=== PATIENT | female | born 1950 | race African-American/Black ===

== ENCOUNTER 2016-10-27 19:08 | Emergency (ER) | payer BC, OTHER ==
[~2016-10-27] VITALS: Ht 170.2 cm; Wt 85.7 kg
[~2016-10-27 19:08] MED LIST: ACTICIN 5% CREA60 G1 TOP; ALLEGRA180 MG PO; AVALIDE 300-251 EACH PO; BENADRYL25 MG PO; BUTALB-APAP-CA1 EACH PO; BUTALBITAL-APA1 EAC1 PO; CAMBIA50 MG PO; CARDIZEM CD120 MG PO; CATAPRES0.1 MG PO; CLONIDINE0.1 PO; DOXYCYCLINE 10100 MG PO; DUONEB 2.5-0.5 M3 ML INH; ESTRACE0.5 MG PO; FIORICET 50-321 EACH PO; FIORINAL 50-321 EACH PO; FLEXERIL PO; GLUCOPHAGE1000 MG PO; HYDROCHLOROTHIA25 M1 PO; IBUPROFEN 800800 M1 PO; KLOR-CON 1010 MEQ PO; LEVEMIR SUBQ; LOSARTAN POTAS100 MG PO; MEDROLDOSEPACK PO; METFORMIN HCL500 MG PO; MICRONASE5 MG PO; MUCINEX DM TABL1 TA1 PO; NORCO 5-325 TA1 EACH PO; NORFLEX100 MG PO; NORVASC10 MG PO; NORVASC5 MG PO; PHENERGAN 25 MG25 M1 PO; POTASSIUM20 PO; PREDNISONE 10 M10 MG; PREDNISONE 10 M10 MG PO; PREDNISONE 20 M20 MG PO; PREDNISONE50 MG PO; PREMARIN PO; PROMETHAZINE/C118 ML PO; SINGULAIR 10 MG10 M1 PO; SYMBICORT160 MCG/4. INH; TESSALON PERLE100 MG PO; ULTRAVATE50 GM TP; VAGIFEM25 MCG PO; XOPENEX 0.63 MG/3 M1 INH; ZOFRAN ODT4 MG PO; [UNRECOGNIZED DRUG - REMARK]
[2016-10-27] MEDS ORDERED: FLONASE 0.05%50 MCG NASAL (19:42)
== END 2016-10-27 19:56 | disposition home or self-care (01) ==
LOC: ER 19:08
DX: H11.31 Conjunctival hemorrhage, right eye (principal); J30.9 Allergic rhinitis, unspecified; E11.9 Type 2 diabetes mellitus without complications; I10 Essential (primary) hypertension; J45.909 Unspecified asthma, uncomplicated; G43.909 Migraine, unspecified, not intractable, without status migrainosus; Z90.710 Acquired absence of both cervix and uterus

== ENCOUNTER 2016-11-11 17:28 | Emergency (ER) | payer BC, OTHER ==
[~2016-11-11] VITALS: Ht 170.2 cm; Wt 86.6 kg
[~2016-11-11 17:28] MED LIST changes: +FLONASE 0.05%50 MCG NASAL
[2016-11-11] MEDS ORDERED: PREDNISONE 20 M20 MG PO (18:01)
[2016-11-11] MEDS ORDERED: PEPCID20 MG PO (18:01)
[2016-11-11] MEDS ORDERED: DIPHENHIST50 MG PO (18:03)
== END 2016-11-11 18:26 | disposition home or self-care (01) ==
LOC: ER 17:28
DX: T78.49XA Other allergy, initial encounter (principal); X58.XXXA Exposure to other specified factors, initial encounter; E11.9 Type 2 diabetes mellitus without complications; I10 Essential (primary) hypertension; J45.909 Unspecified asthma, uncomplicated; Z90.710 Acquired absence of both cervix and uterus

== ENCOUNTER → 2017-02-19 | Outpatient (CLI) | payer BC, OTHER ==
[~2017-02-19] MED LIST changes: +DIPHENHIST50 MG PO; +PEPCID20 MG PO
== END ==
LOC: RAD 07:18
DX: Z12.31 Encounter for screening mammogram for malignant neoplasm of breast (principal)

== ENCOUNTER 2017-08-25 15:26 | Emergency (ER) | payer BC, OTHER ==
[~2017-08-25] VITALS: Ht 170.2 cm; Wt 79.8 kg
[2017-08-25] MEDS ORDERED: JANUMET 50-1,01 EACH PO (15:33)
[2017-08-25] MEDS ORDERED: TRIAMCINOLONE A15 G3 TOP (16:20)
== END 2017-08-25 16:55 | disposition home or self-care (01) ==
LOC: ER 15:26
DX: L30.9 Dermatitis, unspecified (principal); L40.9 Psoriasis, unspecified; I10 Essential (primary) hypertension; E11.9 Type 2 diabetes mellitus without complications; J45.909 Unspecified asthma, uncomplicated

== ENCOUNTER → 2017-10-13 | Outpatient (CLI) | payer BC, OTHER ==
[~2017-10-13] MED LIST changes: +JANUMET 50-1,01 EACH PO; +TRIAMCINOLONE A15 G3 TOP
== END ==
LOC: RAD 15:21
DX: J45.51 Severe persistent asthma with (acute) exacerbation (principal); J20.9 Acute bronchitis, unspecified

== ENCOUNTER → 2017-10-26 | Outpatient (CLI) | payer BC, OTHER ==
[~2017-10-26] VITALS: Ht 170.2 cm; Wt 81.6 kg
[~2017-10-26] MED LIST changes: +ASPIR 8181 MG PO; +CIPRO500 MG PO; +CLARITIN10 MG PO; +CLONIDINE HCL0.1 MG PO; +EPIPEN0.3 MG/0.1 IM; +GABAPENTIN 100100 MG PO; +HYDROCODONE-AP1 EAC6 PO; +PREDNISONE 5 MG5 M1 PO; +TRULICITY1.5 MG/0.5 SUBQ
--- NOTE | ~2017-10-26 | HPC ---
[facility] [address] [place] [address] PAIN MANAGEMENT CONSULTATION Name: YARA CALI [facility] [id number] Admission: 10/26/17 Attend Phys: Oswald Tyson DO Discharge: Date of : 48 Report #: [id number] THIS REPORT FOR: //name// CC: Oswald Tyson DATE OF SERVICE: 10/26/2017 CHIEF COMPLAINT: Low back pain, right lower extremity pain and paresthesias. HISTORY OF PRESENT ILLNESS: As you know, the patient is a very pleasant 67-year-old female who returns today in followup visit with recurrent low back pain, right lower extremity pain with paresthesias. The patient places pain today a level of 9/10, states her pain is sharp, numbness and tingling when describing pain, exacerbated with sitting, standing, and walking, improves with ibuprofen therapy and previous epidural injections. The patient was last seen in our clinic on 09/08/2016, undergoing an epidural injection under fluoroscopic guidance, which provided near 100% improvement in overall pain until just recently where she had a slow and progressive return of symptoms. She denies injury or trauma or any changes in medical history since our last visit. ALLERGIES: No known drug allergies. CURRENT MEDICATIONS: Gabapentin 100 mg 3 times a day, Janumet twice a day, montelukast sodium 10 mg per day, Symbicort 160/4.5 mcg 2 puffs twice a day, potassium chloride 10 mEq p.o. daily, diltiazem 120 mg 3 tabs p.o. daily, ipratropium, albuterol 3 puffs q.4 hours p.r.n., Fioricet 1 tab p.r.n., ibuprofen 600 mg 3 times a day, estradiol 0.5 mg once a day, hydrochlorothiazide 25 mg per day, and gabapentin 100 mg 3 times a day. SOCIAL HISTORY: The patient denies tobacco, alcohol, IV or illicit drug use. She is employed, working, not receiving workmen's compensation, unaccompanied today. IMAGING: No new imaging available. PHYSICAL EXAMINATION: VITAL SIGNS: Blood pressure 128/90, pulse 89, respiratory rate 14 and unlabored, the patient is 100% on room air, height 5 feet 7 inches tall, weight 180 pounds, and BMI calculated 28.2. GENERAL: Well-developed, well-nourished, well-hydrated 67-year-old female, appearing her stated age, placing current pain score at around 9/10. HEENT: Normocephalic, atraumatic. Pupils are equal, round, and reactive to light. Extraocular muscles are intact. Sclerae are nonicteric without injection. NEUROLOGIC: Cranial nerves 2-12 are grossly intact. Speech is fluent. [address] [address] PAIN MANAGEMENT CONSULTATION Name: YARA CALI Room #: REG [facility].#: [id number] Admission: 10/26/17 Attend Phys: Oswald Tyson DO Discharge: Date of : 48 Report #: [id number] EXTREMITIES: Show no clubbing, no cyanosis, and no edema. MUSCULOSKELETAL: Seated straight leg raising negative. Supine straight leg raising positive right. Louann's test negative. Modified Gaenslen's positive for axial low back pain. Ankle clonus negative. Babinski is negative. ASSESSMENT: 1. Symptomatic lumbar radiculopathy. 2. Displacement of lumbar intervertebral disk with radiculopathy. 3. Lumbosacral spondylosis with radiculopathy. 4. Left greater trochanteric bursitis. 5. Chronic intractable pain. PLAN: 1. The patient has returned today in followup visit requesting to undergo epidural injection under fluoroscopic guidance. Her last procedure performed in August 2016, was very effective at treating the patient's overall pain, noting 100% improvement in symptoms lasting until just recently. She returns today in followup visit with no new injury, no new trauma, requesting this injection to help with low back pain and right lower extremity pain for which she places pain score at 9/10. I have advised the patient of risks and benefits of the procedure, states understood and wished to proceed. 2. The patient does have what appears to be left greater trochanteric bursitis by physical exam. Palpation over the area causes intensification to pain. Location of symptoms correlates with greater trochanteric bursa on the left. I advised the patient treatment options including medication management, physical therapy, intra-bursal injections and surgery options, the patient wishes to consider her options before moving forward with treatment. She is hopeful that the steroid exposure from the epidural injection will provide benefit long-term for the greater trochanteric bursa, which typically occurs somewhere between 5-7 days after injections. We will monitor the effects of the epidural injection from a steroid exposure standpoint and its effects upon the greater trochanteric bursa. If no improvement is noted, she can return for intra-bursal injection. 3. No medication changes were made at today's visit, the patient to continue current medical therapy as previously prescribed. I will see the patient back in followup visit on an as needed basis for next in a series of epidural injections. DESCRIPTION OF PROCEDURE: Right L4-L5 paramedian epidural injection under fluoroscopic guidance. After obtaining written consent, the patient was taken back to fluoroscopy suite, placed in prone position with pillow under abdomen to decrease lumbar lordosis. Skin overlying lumbosacral area prepped and draped in aseptic fashion. The L4-L5 vertebral interspace identified by AP fluoroscopy. Skin and subcutaneous tissue overlying target site of injection was anesthetized with 3 mL of 1% lidocaine. [address] [address] PAIN MANAGEMENT CONSULTATION Name: YARA CALI Room #: REG [facility] Dias#: [id number] Admission: 10/26/17 Attend Phys: Oswald Tyson DO Discharge: Date of : 48 Report #: [id number] A 20-gauge 3-1/2-inch Tuohy needle advanced under fluoroscopic guidance towards the epidural space using a right paramedian approach. Epidural space identified using loss of resistance to air technique. After negative aspiration for heme or cerebrospinal fluid, 1 mL of Omnipaque was injected. Lumbar epidurogram was confirmed using both AP and lateral fluoroscopy. After negative aspiration for heme or cerebrospinal fluid, 5 mL of a solution containing 2 mL 40 mg per mL, 80 mg total triamcinolone, 3 mL lidocaine 1% was injected slowly. Needle retracted detention, flushed with 1 mL of 1% lidocaine and removed. Sterile bandage placed over injection site. No new motor deficits present in lower extremity following the procedure. The patient tolerated the procedure well, carefully escorted to the recovery room in stable condition. No apparent complications. After meeting discharge criteria, the patient discharged home. <ELECTRONICALLY SIGNED> By: Oswald Tyson DO 10/27/17 0739 [id number] [id number] Oswald Tyson DO /nt
[2017-10-26 08:04] VITALS: BP 128/90
== END | disposition home or self-care (01) ==
LOC: PAIN 07:02
DX: M51.16 Intervertebral disc disorders with radiculopathy, lumbar region (principal); M47.27 Other spondylosis with radiculopathy, lumbosacral region; M70.62 Trochanteric bursitis, left hip; G89.29 Other chronic pain; G43.909 Migraine, unspecified, not intractable, without status migrainosus; J45.909 Unspecified asthma, uncomplicated; Z79.899 Other long term (current) drug therapy

== ENCOUNTER 2017-11-20 23:40 | Inpatient (IN) | payer BC, OTHER ==
[~2017-11-20] VITALS: Ht 170.2 cm; Wt 82.2 kg
--- NOTE | ~2017-11-20 | 2DMMODE ---
[facility] [address] [place] [address] 2 D/M-MODE ECHOCARDIOGRAM Name: YARA CALI Room #: 217-P ADM IN .R.#: [id number] Admission: 11/21/17 Attend Phys: Joel Bennett MD Discharge: Date of : 48 Date of Service: 11/22/17 0959 Report #: [id number] THIS REPORT FOR: //name// APPROVED REPORT Study performed: 11/22/2017 08:42:51 EXAM: Comprehensive 2D, Doppler, and color-flow Echocardiogram Patient Location: Bedside Room #: [facility] Status: routine BSA: 1.80 HR: 88 bpm BP: 170/97 mmHg Other Information Study Quality: Adequate Indications CVA/TIA Diabetes Hypertension/HDD Echo Enhancing Agent Indication: Rule out Shunt Agent(s) / Amount(s) Used: Agitated Saline 7 cc 2D Dimensions LVEF(%): 71.58 (>50%) IVSd: 14.18 (7-11mm) LVOT Diam: 20.90 (18-24mm) LVDd: 35.04 mm PWd: 11.71 (7-11mm) Ascending Ao: 31.85 (22-36mm) LVDs: 21.05 (25-40mm) Aortic Root: 31.29 mm IVC: 19.00 mm Mckinney's LVEF: 71.58 % Volumes Left Atrial Volume (Systole) Single Plane 4CH: 39.58 mL Single Plane 2CH: 50.31 mL LA ESV Index: 29.00 mL/m2 Aortic Valve AoV Peak Roberto.: 1.73 m/s AO Peak Gr.: 11.99 mmHg LVOT Max P.40 mmHg LVOT Max V: 1.53 m/s [facility] [address] [address] 2 D/M-MODE ECHOCARDIOGRAM Name: VIRAJYARA [facility] .R.[facility] [id number] Admission: 11/21/17 Attend Phys: Joel Bennett MD Discharge: Date of : 48 Date of Service: 11/22/17 0959 Report #: [id number] ORQUIDEA Vmax: 3.04 cm2 Mitral Valve E/A Ratio: 0.6 MV Decel. Time: 259.78 ms MV E Max Roberto.: 1.00 m/s MV A Roberto.: 1.63 m/s MV PHT: 75.33 ms IVRT: 110.73 ms Pulmonary Valve PV Peak Roberto.: 1.00 m/s PV Peak Gr.: 4.00 mmHg Pulmonary Vein P Vein S: 0.54 m/s P Vein A: 0.31 m/s P Vein D: 0.31 m/s P Vein A Dur.: 100.3 msec P Vein S/D Ratio: 1.74 Left Ventricle The left ventricle is normal size. There is normal LV segmental wall motion. Mild concentric left ventricular hypertrophy. The left ventricular systolic function is normal. The left ventricular ejection fraction is within the normal range. LVEF is 60-65%. Grade I - abnormal relaxation pattern. Right Ventricle The right ventricle is normal size. The right ventricular systolic function is normal. Atria The left atrium size is normal. Interatrial septum is intact without evidence of ASD or PFO. The right atrium size is normal. Aortic Valve Aortic valve is calcified. No aortic regurgitation is present. There is no aortic valvular stenosis. Mitral Valve Moderate mitral annular calcification Trace mitral regurgitation. No evidence of mitral valve stenosis. Tricuspid Valve The tricuspid valve is normal in structure. There is no tricuspid valve regurgitation noted. Pulmonic Valve [address] [address] 2 D/M-MODE ECHOCARDIOGRAM Name: YARA CALI Room #: 217-P [facility] IN [facility]#: [id number] Admission: 11/21/17 Attend Phys: Joel Bennett MD Discharge: Date of : 48 Date of Service: 11/22/17 0959 Report #: [id number] The pulmonary valve is normal in structure. There is no pulmonic valvular regurgitation. Great Vessels The aortic root is normal in size. IVC is normal in size and collapses >50% with inspiration. Pericardium There is no pericardial effusion. <Conclusion> The left ventricular systolic function is normal. Mild concentric left ventricular hypertrophy. There is normal LV segmental wall motion. LVEF is 60-65%. Grade I diastolic dysfunction Aortic valve is calcified. No aortic regurgitation or stenosis Moderate mitral annular calcification. Trace mitral regurgitation. Pulmonary artery pressure could not be reliably ascertained There is no pericardial effusion. <ELECTRONICALLY SIGNED> By: Osvaldo Noel MD, FACC 11/22/17958 8 8 Osvaldo Noel MD, FACC /INF
--- NOTE | ~2017-11-20 | EEG ---
[facility] [place] [address] [place] [address] ELECTROENCEPHALOGRAM Name: YARA CALI Room #: 217-P [facility] IN M.R.#: [id number] Admission: 11/21/17 Attend Phys: Joel Bennett MD Discharge: 11/23/17 Date of : 48 Report #: [id number] THIS REPORT FOR: //name// CC: Joel BegumJessica Salinas Brian DATE OF SERVICE: 11/21/2017 This patient is evaluated for the possibility of seizure. EEG was done by placing the electrodes by standard 10-20 system of electrode placement. Both referential and sequential montages were used for recording. Background activity in this patient is about 11 Hz and 40 microvolts. This is a symmetrical activity. Photic stimulation is unremarkable. The patient went to sleep that is associated with bilaterally symmetrical sleep spindle and vertex sharp waves. Throughout the record, no active epileptiform activity was noticed. IMPRESSION: This patient's EEG is within normal limit. Thank you very much for this referral. <ELECTRONICALLY SIGNED> By: Stan Figueroa MD 12/01/172010 1220 1244 Stan Figueroa MD /nt
--- NOTE | ~2017-11-20 | EKG ---
[address] [address] ELECTROCARDIOGRAM REPORT Name: YARA CALI Room #: 217-P ADM IN M.R.#: [id number] Admission: 11/21/17 Attend Phys: Joel Bennett MD Discharge: Date of : 48 Report #: [id number] THIS REPORT FOR: //name// [facility] ED Test Date: 2017-11-21 Test Time: 00:01:45 Pat Name: YARA CALI Department: Room: [facility] Gender: F Facilities Locator: [facility] : 1950 Requested By: Adan Galo Order Number: [id number] MD: Osvaldo Noel Measurements Intervals [place] Rate: 121 P: 155 PA: 131 QRS: 77 QRSD: 81 T: QT: 325 QTc: 461 Interpretive Statements Sinus or ectopic atrial tachycardia Left atrial enlargement Low voltage, extremity leads Nonspecific T abnormalities, lateral leads Compared to ECG 05/17/2016 17:44:07 Ectopic atrial tachycardia is now present low voltage in the limb leads Electronically Signed On 11-21-2017 10:58:33 NETWORK PROJECT MANAGER by Osvaldo Noel [email or web address] <ELECTRONICALLY SIGNED> By: Osvaldo Noel MD, [facility] 11/21/17 1058 0001 0001 Osvaldo Noel MD, [facility] /EPI
--- NOTE | ~2017-11-20 | HC ---
[facility] [place] [place] [address] CONSULTATION Name: YARA CALI Room #: 217-P [facility] IN M.R.#: [id number] Admission: 11/21/17 Attend Phys: Joel Bennett MD Discharge: 11/23/17 Date of : 48 Report #: [id number] THIS REPORT FOR: //name// CC: Joel Torres DATE OF SERVICE: 11/21/2017 HISTORY OF PRESENT ILLNESS: This is a 67-year-old female patient who was admitted with recurrent episode of speech difficulty. History is somewhat poorly defined, but looks like she has garbled speech and at one time some facial droop was noticed on the right side. The patient has not had another episode since last night. She indicates she was under a lot of stress. The speech difficulty was severe, but resolved by itself. They also started spontaneously without any trauma. She estimated it lasted about 20 minutes. REVIEW OF SYSTEMS: Indicate that she is under a lot of stress. She is a longstanding hypertensive. She takes her medication. She also has a history of asthma. Her asthma became worse recently. She had to be started on prednisone. Whenever she had prednisone, she develops hypertension and she indicated that that is what probably had happened. Some time ago looks like she also had some headaches and hypokalemia that does not appear to be any problem at the moment. She feels she is back to her normal self now. I carried out her 14-point review of system both from the patient and from the record and this was her relevant 14-point review of system. She does have a history of hysterectomy. As mentioned above, she does have a history of hypertension. PAST MEDICAL HISTORY: Negative for any stroke. FAMILY HISTORY: Negative for early age stroke. SOCIAL HISTORY: She indicates she drinks on special occasion, but not on a regular basis. PHYSICAL EXAMINATION: The patient's examination indicate she is alert and she is responsive. Her speech, concentration, fund of knowledge and memory is at her baseline. She can tell me what month and what date it is. Cranial nerve examination 2-12 is unremarkable. Her strength, sensation, reflexes and tones are symmetrical. There is no cerebellar sign or papilledema. She is a reasonably well-developed individual who does not have any dysmorphic features of eyes, ears and face. Her vision and hearing looks adequate. She has no thyroid mass or carotid bruit. Her pulses are palpable. She has no edema, cyanosis or jaundice. Cardiac examination was mostly unremarkable. There is no atrial fibrillation or any murmur. Respiratory examination showed no rhonchi on either side and there was no respiratory difficulty. Blood pressure now is [facility] [address] [place] [address] CONSULTATION Name: YARA CALI Room #: [facility] IN M.R.#: [id number] Admission: 11/21/17 Attend Phys: Joel Bennett MD Discharge: 11/23/17 Date of : 48 Report #: [id number] 151/78, respiration is 18, pulse is 102 and temperature is 98.2. When she came in, her blood pressure was 203/127. LABORATORY DATA: She did have laboratory workup done. Her white count was normal and her potassium was 3.5 and GFR was 120. IMAGING: She had multiple imaging studies done looks like she had a CTA of the head that was mostly unremarkable. She had a carotid Doppler, which was unremarkable. Her echocardiogram is pending. She had an EEG, which was unremarkable. IMPRESSION: This patient's clinical symptoms are consistent with hypertensive urgency causing vasospasm and TIA-like symptoms. Sometime they can progress to full stroke and we will rule it out by doing an MRI and also rule out some other etiology. Her blood pressure is already being addressed by yourself. She has already received an aspirin. She received some Keppra and I do not think there is any need to continue Keppra. Her lipid profile is pending. Her C-reactive protein is pending and we will look at this workup to see if anything neurologically needs to be done, but I do not think we need to do much at the moment except for treating her blood pressure and avoiding any hyper or hypotension. RECOMMENDATIONS: 1. MRI. We will go ahead and get a stat to make sure there is no pathology, which need to be addressed because the patient is rather preserved. 2. I agree with antiplatelet therapy. 3. We will await lipid profile to see if she needs statin. 4. Some more blood workup including sed rate. 5. Main management is going to be the management of the vascular risk factors especially her hypertension. All of it was discussed with the patient and she understands that and she wants to follow this plan. Thank you very much for this referral. <ELECTRONICALLY SIGNED> By: Stan Figueroa MD 12/01/172008 1313 0128 Stan Figueroa MD /nt
[~2017-11-20 23:40] MED LIST changes: -ASPIR 8181 MG PO; -CIPRO500 MG PO; -CLARITIN10 MG PO; -CLONIDINE HCL0.1 MG PO; -EPIPEN0.3 MG/0.1 IM; -HYDROCODONE-AP1 EAC6 PO; -PREDNISONE 5 MG5 M1 PO; -TRULICITY1.5 MG/0.5 SUBQ
[2017-11-20 23:50] VITALS: BP 203/127
[2017-11-21] VITALS (7 sets, daily range): BP systolic 139–173; BP diastolic 73–94
[2017-11-21 00:17] LABS: ABSOLUTE NEUTROPHILS 7.6 thou/uL (1.4-8.2); BASOPHILS 0.5 % (0.0-2.0); HEMATOCRIT 39.3 % (37.0-47.0); HEMOGLOBIN 13.4 gm/dL (12.0-15.0); LYMPHOCYTES 10.9 % (24.0-44.0); MCH 32.9 pg (26.0-34.0); MCHC 34.1 g/dL (28.0-37.0); MCV 96.7 fL (80.0-100.0); MONOCYTES 4.3 % (1.0-8.0); PLATELET COUNT 254 thou/uL (150-400); POLYS 84.3 % (36.0-66.0); RBC 4.06 mil/uL (4.20-5.00); RDW 14.9 % (10.5-14.5)
[2017-11-21 00:36] LABS: ANION GAP 13 mmol/L (7-16); BUN 14 mg/dL (7-18); CALCIUM 9.4 mg/dL (8.5-10.1); CHLORIDE 102 mmol/L (98-107); CO2 23 mmol/L (21-32); CREATININE 0.8 mg/dL (0.6-1.0); GLUCOSE 188 mg/dL (74-106); POTASSIUM 3.1 mmol/L (3.5-5.1); SODIUM 138 mmol/L (136-145)
[2017-11-21 00:38] LABS: APTT 24.5 Seconds (24.5-32.8); PROTIME 10.2 Seconds (9.3-11.4)
[2017-11-21 00:40] LABS: URINE BILIRUBIN NEGATIVE (Negative); URINE BLOOD 1+ (Negative); URINE CLARITY CLOUDY; URINE COLOR YELLOW; URINE GLUCOSE-RANDOM* NEGATIVE (Negative); URINE KETONES NEGATIVE (Negative); URINE NITRITE-REFLEX NEGATIVE (Negative); URINE PROTEIN (DIPSTICK) NEGATIVE (Negative); URINE SPECIFIC GRAVITY <= 1.005 (1.005-1.035); URINE UROBILINOGEN 0.2 E.U./dl (0.2-1.0)
[2017-11-21 00:45] LABS: MAGNESIUM 1.7 mg/dL (1.8-2.4); SGOT 21 U/L (15-37); SGPT 34 U/L (30-65); TOTAL BILIRUBIN 0.4 mg/dL (<0.1-1.0); TOTAL PROTEIN 7.5 g/dL (6.4-8.2); TROPONIN-I < 0.04 ng/mL (<0.06)
[2017-11-21 00:45] LABS: URINE LEUKOCYTES-REFLEX 3+ (Negative)
[2017-11-21 00:47] LABS: AMP/METHAMP Negative (Negative); BARBITURATES POSITIVE (Negative); BENZODIAZEPINES Negative (Negative); COCAINE Negative (Negative); METHADONE Negative (Negative); OPIATES Negative (Negative); PCP Negative (Negative)
[2017-11-21] MEDS ORDERED: EPIPEN0.3 MG/0.1 IM (00:47)
[2017-11-21 00:55] LABS: CASTS None Seen /LPF (None Seen); CRYSTALS None Seen /LPF (None Seen); SQUAMOUS 4-10 Moderate /LPF (0-3); URINE RBC 3-10 Few /HPF (0-2); URINE WBC-REFLEX >25 Many /HPF (0-5)
[2017-11-21] MEDS ORDERED: PREDNISONE 5 MG5 M1 PO (01:55)
[2017-11-21] MEDS ORDERED: CLONIDINE HCL0.1 MG PO (02:39)
[2017-11-21] MEDS ORDERED: TRULICITY1.5 MG/0.5 SUBQ (02:41)
[2017-11-21 06:45] LABS: CHOLESTEROL 153 mg/dL (<200); HDL CHOLESTEROL 74 mg/dL (>40); LDL CHOLESTEROL 74 mg/dL (<100); TC:HDL 2.1 Ratio (Not establshd); TRIGLYCERIDE 29 mg/dL (<150); VLDL 6 mg/dL (<40)
[2017-11-21 09:53] LABS: CALCIUM 8.6 mg/dL (8.5-10.1); CREATININE 0.6 mg/dL (0.6-1.0); MAGNESIUM 2.3 mg/dL (1.8-2.4); POTASSIUM 3.5 mmol/L (3.5-5.1)
[2017-11-21 23:07] LABS: GLYCOHEMOGLOBIN (HGB A1C) 5.3 % (4.8-5.6)
[2017-11-22 04:45] VITALS: BP 156/113
[2017-11-22 08:00] VITALS: BP 170/97
[2017-11-22 12:00] VITALS: BP 151/99
[2017-11-22 12:22] VITALS: BP 140/65
[2017-11-22 16:00] VITALS: BP 151/100
[2017-11-22 19:58] VITALS: BP 152/102
[2017-11-23 00:39] VITALS: BP 153/91
[2017-11-23 03:52] VITALS: BP 145/94
[2017-11-23 04:49] LABS: ABSOLUTE NEUTROPHILS 4.6 thou/uL (1.4-8.2); BASOPHILS 0.3 % (0.0-2.0); EOSINOPHILS 0.7 % (0.0-3.0); HEMATOCRIT 36.2 % (37.0-47.0); LYMPHOCYTES 27.7 % (24.0-44.0); MCH 32.8 pg (26.0-34.0); MCHC 33.1 g/dL (28.0-37.0); MCV 99.2 fL (80.0-100.0); MONOCYTES 9.2 % (1.0-8.0); PLATELET COUNT 238 thou/uL (150-400); POLYS 62.1 % (36.0-66.0); RBC 3.65 mil/uL (4.20-5.00); RDW 14.8 % (10.5-14.5); WBC 7.5 thou/uL (4.0-11.0)
[2017-11-23 04:56] LABS: CREATININE 0.7 mg/dL (0.6-1.0); POTASSIUM 3.5 mmol/L (3.5-5.1)
[2017-11-23 08:37] VITALS: BP 151/98
[2017-11-23] MEDS ORDERED: ASPIR 8181 MG PO (09:57)
[2017-11-23] MEDS ORDERED: CIPRO500 MG PO (09:57)
[2017-11-23] MEDS ORDERED: CLONIDINE HCL0.1 MG PO (09:58)
[2017-11-23 10:51] VITALS: BP 151/98
[2018-06-23] MEDS ORDERED: NORCO 5-325 TA1 EACH PO (19:57)
== END 2017-11-23 13:00 | disposition home or self-care (01) | DRG 69 ==
LOC: ER 23:40 → 2N 11-21 02:05 → ENTRNSPT 11-23 12:39 → EDTRNSPTSTS 11-23 12:43 → 2N 11-23 13:00
PROVIDERS: Emergency Medicine; Family Medicine; Nurse Practitioner Acute Care
DX: G45.9 Transient cerebral ischemic attack, unspecified (principal); G40.209 Localization-related (focal) (partial) symptomatic epilepsy and epileptic syndromes with complex partial seizures, not intractable, without status epilepticus; N39.0 Urinary tract infection, site not specified; E11.9 Type 2 diabetes mellitus without complications; I10 Essential (primary) hypertension; J45.909 Unspecified asthma, uncomplicated; G43.909 Migraine, unspecified, not intractable, without status migrainosus; E87.6 Hypokalemia; E83.42 Hypomagnesemia; I16.0 Hypertensive urgency; Z90.710 Acquired absence of both cervix and uterus; Z79.899 Other long term (current) drug therapy
CPT/HCPCS: 10081

== ENCOUNTER 2018-01-14 14:54 | Emergency (ER) | payer BC, OTHER ==
[~2018-01-14] VITALS: Ht 170.2 cm; Wt 79.4 kg
[~2018-01-14 14:54] MED LIST changes: +ASPIR 8181 MG PO; +CIPRO500 MG PO; +CLONIDINE HCL0.1 MG PO; +EPIPEN0.3 MG/0.1 IM; +PREDNISONE 5 MG5 M1 PO; +TRULICITY1.5 MG/0.5 SUBQ
[2018-01-14] MEDS ORDERED: HYDROCODONE-AP1 EAC6 PO (15:56)
[2018-01-14 16:04] VITALS: BP 143/82
[2018-06-23] MEDS ORDERED: NORCO 5-325 TA1 EACH PO (19:57)
== END 2018-01-14 16:04 | disposition home or self-care (01) ==
LOC: ER 14:54
DX: S01.112A Laceration without foreign body of left eyelid and periocular area, initial encounter (principal); E11.9 Type 2 diabetes mellitus without complications; I10 Essential (primary) hypertension; J45.909 Unspecified asthma, uncomplicated; G43.909 Migraine, unspecified, not intractable, without status migrainosus; Z90.710 Acquired absence of both cervix and uterus; W25.XXXA Contact with sharp glass, initial encounter; Y93.89 Activity, other specified; Y92.89 Other specified places as the place of occurrence of the external cause; Y99.8 Other external cause status

== ENCOUNTER 2018-02-08 18:55 | Emergency (ER) | payer BC, OTHER ==
[~2018-02-08] VITALS: Ht 170.2 cm; Wt 74.8 kg
[~2018-02-08 18:55] MED LIST changes: +HYDROCODONE-AP1 EAC6 PO
[2018-02-08] MEDS ORDERED: CLARITIN10 MG PO (19:23)
[2018-02-08] MEDS ORDERED: FLONASE 0.05%50 MCG NASAL (19:23)
== END 2018-02-08 19:48 | disposition home or self-care (01) ==
LOC: ER 18:55
DX: H65.91 Unspecified nonsuppurative otitis media, right ear (principal); E11.9 Type 2 diabetes mellitus without complications; I10 Essential (primary) hypertension; J45.909 Unspecified asthma, uncomplicated; G43.909 Migraine, unspecified, not intractable, without status migrainosus

== ENCOUNTER → 2018-03-01 | Outpatient (CLI) | payer BC, OTHER ==
[~2018-03-01] MED LIST changes: +CLARITIN10 MG PO
== END ==
LOC: RAD 15:06
DX: Z12.31 Encounter for screening mammogram for malignant neoplasm of breast (principal)

== ENCOUNTER 2019-01-10 19:04 | Emergency (ER) | payer BC, OTHER ==
[~2019-01-10] VITALS: Ht 170.2 cm; Wt 72.6 kg
[2019-01-10 21:33] VITALS: BP 148/69
== END 2019-01-10 21:34 | disposition home or self-care (01) ==
LOC: ER 19:04
DX: L20.9 Atopic dermatitis, unspecified (principal); E11.9 Type 2 diabetes mellitus without complications; I10 Essential (primary) hypertension; J45.909 Unspecified asthma, uncomplicated; G43.909 Migraine, unspecified, not intractable, without status migrainosus; Z79.899 Other long term (current) drug therapy

== ENCOUNTER → 2019-03-07 | Outpatient (CLI) | payer BC, OTHER ==
[~2019-03-07] VITALS: Ht 170.2 cm; Wt 76.3 kg
--- NOTE | ~2019-03-07 | HPC ---
[facility] [place] [address] PAIN MANAGEMENT CONSULTATION Name: YARA CALI Room #: REG [facility]..#: [id number] Admission: 03/07/19 ������������������ Attend Phys: Oswald Tyson DO Discharge: ������������������ Date of : 48 Report #: [id number] THIS REPORT FOR: //name// CC: Oswald Kamara DATE OF SERVICE: 03/07/2019 CHIEF COMPLAINT: Low back pain, right lower extremity pain with paresthesias. HISTORY OF PRESENT ILLNESS: As you know, the patient is a very pleasant 68-year-old female returning in followup visit to undergo next in the series of lumbar epidural injections. The patient received 14 months of improvement with previous epidural injection. Unfortunately, her symptoms have begun to return about 2 weeks ago. She states she was active in cleaning out her basement and may have exacerbated the symptoms. She is now placing pain score 10/10. She has returned today in followup visit requesting to undergo next in the series of lumbar epidural injections under fluoroscopic guidance to address lumbar radicular pain. The patient denies any specific injury or trauma that may have led to symptom development, but does believe that the pain was exacerbated with the activities, working in her basement. She indicates no major changes in her medical history since our last visit. ALLERGIES: No known drug allergies. CURRENT MEDICATIONS: See extensive list in chart. SOCIAL HISTORY: The patient denies tobacco, alcohol, IV or illicit drug use. She is unaccompanied today. IMAGING: No new imaging available. PHYSICAL EXAMINATION: VITAL SIGNS: Blood pressure 124/89, pulse 85, respiratory rate 16 and unlabored. The patient is 100% on room air. Height 5 feet 7 inches tall, weight 168.2 pounds, BMI calculated 26.3. GENERAL: Well-developed, well-nourished, well-hydrated 68-year-old female appearing her stated age. She is placing pain score today 10/10. HEENT: Normocephalic, atraumatic. Pupils equal, round, reactive to light. Speech remains fluent. The patient deemed a good historian. LUNGS: Clear, no wheeze, rhonchi or rales. CARDIOVASCULAR: Regular. No appreciable gallop, no rub. ABDOMEN: Soft, mildly obese, normoactive bowel sounds. EXTREMITIES: Show no clubbing, no cyanosis, no edema. MUSCULOSKELETAL: Lower extremity strength appears symmetrical 5/5. Muscle bulk [facility] [address] [place] [address] PAIN MANAGEMENT CONSULTATION Name: YARA CALI [facility] [id number] Admission: 03/07/19 ������������������ Attend Phys: Oswald Tyson DO Discharge: ������������������ Date of : 48 Report #: [id number] and tone is symmetrical in comparing right lower extremity over left. Seated straight leg raising negative. Supine straight leg raising positive right. Louann's test negative. Gait mildly antalgic favoring right lower extremity over left. ASSESSMENT: 1. Symptomatic lumbar radiculopathy. 2. Displacement of lumbar intervertebral disk with radiculopathy. 3. Lumbosacral spondylosis with radiculopathy. 4. Lumbar degeneration. 5. Chronic intractable pain. PLAN: 1. The patient returns today in followup visit having noted 14 month improvement in overall pain with previous epidural injection. Unfortunately, her symptoms have begun to return. She believes she may have exacerbated symptoms while doing housecleaning in her basement. She returns today requesting to undergo a lumbar epidural injection in hopes of improving pain. The patient denies any other injury or trauma. She has been advised risks and benefits of the procedure. These risks include but are not necessarily limited to bleeding, bruising, infection, worsening pain, no relief of pain, also risk of temporary or permanent muscle weakness, temporary or permanent nerve damage, possible paralysis and . The patient states understood and wished to proceed. 2. No medication changes made at today's visit. The patient will continue current medical therapy as previously prescribed. 3. We will see the patient back in followup visit on an as needed basis for possible next in the series of lumbar epidural injections. DESCRIPTION OF PROCEDURE: L4-L5 interlaminar epidural steroid injection under fluoroscopic guidance. After obtaining written consent, the patient was taken back to fluoroscopy suite, placed in prone position with pillow under abdomen to decrease lumbar lordosis. Skin overlying lumbosacral area prepped and draped in aseptic fashion. The L4-L5 interspace was identified by AP fluoroscopy. Skin and subcutaneous tissue overlying target site of injection anesthetized with 3 mL of 1% lidocaine. A 20-gauge 3-1/2 inch Tuohy needle advanced under fluoroscopic guidance towards the epidural space using a right parasagittal approach. Epidural space identified using loss of resistance to air technique. After negative aspiration for heme or cerebrospinal fluid, 1 mL of Omnipaque injected. Lumbar epidurogram confirmed using both AP and lateral fluoroscopy. After negative aspiration for heme or cerebrospinal fluid, 5 mL of a solution containing 2 mL 40 mg per mL, 80 mg total triamcinolone and 3 mL of lidocaine 1% injected slowly. Needle then [address] [address] PAIN MANAGEMENT CONSULTATION Name: YARA CALI Room #: REG CLI Amador#: [id number] Admission: 03/07/19 ������������������ Attend Phys: Oswald Tyson DO Discharge: ������������������ Date of : 48 Report #: [id number] retracted approximately half way, flushed with 1 mL of 1% lidocaine and then removed. Sterile bandage placed over injection site. No new motor deficits present in the lower extremities following procedure. The patient tolerated procedure well, carefully escorted to recovery room in stable condition. No apparent complications. After meeting discharge criteria, the patient discharged home. ��������������������������������������������� ���������������������������������������� By: ��������������������������������������������� 1003 2108 Oswald Tyson DO /nt
[2019-03-07 08:13] VITALS: BP 124/89
--- NOTE | 2019-03-07 08:30 | NUR ---
Pain Clinic Assessment: 1. History of Osteoarthritis: Not Applicable History of Rheumatoid Arthritis: Not Applicable 2. Height: 5 ft. 7 in. 170.2 cm. Weight: 168.2 lb. oz. 76.295 kg. Patient's BMI: 26.3 3. Vital Signs: BP: 124/89 Pulse: 85 Resp: 16 Temp: 02 Sat: 100 ECG Mon: 4. Pain Intensity: 10 5. Fall Risk: Dizziness: N Needs help standing or walking: N Fallen in the last 3 months: N Fall risk comments: 6. Patient on Blood Thinner: None 7. History of Hypertension: Y 8. Opioid Therapy greater than 6 weeks: N Opiate Contract Signed: 9. Risk Assessment Tool Provided: 0-low 10. Functional Assessment Tool: 70/70 11. Recreational Drug Use: Never Drug Type: Tobacco Use: Never Smoker Tobacco Type: Amount or Packs/day: How Many Years: Alcohol Use: Yes Frequency: Special Occasions Quant: 1
== END | disposition home or self-care (01) ==
LOC: PAIN 06:44
DX: M51.16 Intervertebral disc disorders with radiculopathy, lumbar region (principal); M47.27 Other spondylosis with radiculopathy, lumbosacral region; G89.29 Other chronic pain; I10 Essential (primary) hypertension; G43.909 Migraine, unspecified, not intractable, without status migrainosus; J45.909 Unspecified asthma, uncomplicated; Z86.73 Personal history of transient ischemic attack (TIA), and cerebral infarction without residual deficits; Z98.890 Other specified postprocedural states; Z79.899 Other long term (current) drug therapy; Z79.82 Long term (current) use of aspirin

== ENCOUNTER → 2019-03-24 | Outpatient (CLI) | payer BC, OTHER | LOC: RAD 15:02 | DX: Z12.31 Encounter for screening mammogram for malignant neoplasm of breast (principal) ==

== ENCOUNTER → 2019-05-23 | Outpatient (CLI) | payer BC, OTHER ==
[~2019-05-23] VITALS: Ht 170.2 cm; Wt 73.8 kg
--- NOTE | ~2019-05-23 | HPC ---
[facility] [address] [place] [address] PAIN MANAGEMENT CONSULTATION Name: YARA CALI Room #: REG [facility].#: [id number] Admission: 05/23/19 ������������������ Attend Phys: Oswald Tyson DO Discharge: ������������������ Date of : 48 Report #: [id number] THIS REPORT FOR: //name// CC: DR YOGI Tyson DATE OF SERVICE: 05/23/2019 CHIEF COMPLAINT: Low back pain, right lower extremity pain with paresthesias HISTORY OF PRESENT ILLNESS: As you know, the patient is a very pleasant 69-year-old female who returns today in followup visit to undergo next in the series of lumbar epidural injections under fluoroscopic guidance. She reports previous epidural injection gave 80% improvement in overall pain lasting for nearly 2 months. She returns today with pain score 10/10, to undergo next in the series of recurrent lumbar radicular symptoms. She is very pleased with response to the previous epidural injection and hopeful to see similar improvement today. She denies new injury, trauma or any changes in medical history since our last visit. ALLERGIES: No known drug allergies. CURRENT MEDICATIONS: Aspirin, fluticasone, Trulicity, gabapentin, Janumet, montelukast sodium, Symbicort, potassium chloride, diltiazem, ipratropium bromide, Fioricet, hydrochlorothiazide, estradiol. SOCIAL HISTORY: The patient denies tobacco, alcohol, IV or illicit drug use. She is unaccompanied today. IMAGING: There is no new imaging available. PHYSICAL EXAMINATION: VITAL SIGNS: Blood pressure 136/89, pulse 95, respiratory rate 16 and unlabored. The patient is 100% on room air. Height 5 feet 7 inches tall, weight 162.6 pounds, BMI calculated 25.5. GENERAL: Well-developed, well-nourished, well-hydrated 58-year-old female, appearing stated age, placing current pain score at 10/10. HEENT: Normocephalic, atraumatic. Pupils equal, round, reactive to light. EXTREMITIES: Show no clubbing, no cyanosis and no edema. MUSCULOSKELETAL: Lower extremity strength appears equal and symmetrical 5/5. Muscle bulk and tone remains symmetrical comparing left lower extremity to right. Seated straight leg raising negative. Supine straight leg raising positive on the right. Gait mildly antalgic favoring right lower extremity over left. Ankle clonus negative. Babinski is negative. [address] [address] PAIN MANAGEMENT CONSULTATION Name: YARA CALI [id number] Admission: 05/23/19 ������������������ Attend Phys: Oswald Tyson DO Discharge: ������������������ Date of : 48 Report #: [id number] ASSESSMENT: 1. Symptomatic lumbar radiculopathy. 2. Displacement of lumbar intervertebral disk with radiculopathy. 3. Lumbosacral spondylosis with radiculopathy. 4. Lumbar degeneration. 5. Chronic intractable pain. PLAN: 1. The patient returns today in followup visit requesting to undergo lumbar epidural injection under fluoroscopic guidance to address lumbar radicular symptoms that have occurred without inciting injury or trauma. The patient reports pain today at level of 10/10. The patient reports 80% improvement in overall pain with previous epidural injection lasting for nearly 2 months, returning today to undergo next in the series to build on that success. She has been advised risks and benefits of the procedure, states understood and wished to proceed. 2. No medication changes made at today's visit. The patient will continue current medical therapy as previously prescribed. 3. We will see the patient back in followup visit on an as needed basis for possible next in a series of lumbar epidural injections. DESCRIPTION OF PROCEDURE: L5-S1 intralaminar epidural steroid injection under fluoroscopic guidance. After obtaining written consent, the patient was taken back to fluoroscopy suite, placed in prone position with pillow under abdomen to decrease lumbar lordosis. Skin overlying lumbosacral area then prepped and draped in aseptic fashion. The lumbar intervertebral spaces were identified by AP fluoroscopy. Skin and subcutaneous tissue overlying target site of injection anesthetized with 3 mL of 1% lidocaine. A 20-gauge 3-1/2 inch Tuohy needle advanced under fluoroscopic guidance towards the epidural space using a parasagittal approach. Epidural space identified using loss of resistance to air technique. After negative aspiration for heme or cerebrospinal fluid, 1 mL of Omnipaque injected. Lumbar epidurogram confirmed using both AP and lateral fluoroscopy. After negative aspiration for heme or cerebrospinal fluid, 5 mL of a solution containing 2 mL 40 mg per mL, 80 mg total triamcinolone and 3 mL lidocaine 1% injected slowly. Needle then retracted approximately half way, flushed with 1 mL of 1% lidocaine and removed. Sterile bandage placed over injection site. There were no new motor deficits present in the lower extremities following procedure. The patient tolerated procedure well, carefully escorted to recovery room in [facility] [address] [place] [address] PAIN MANAGEMENT CONSULTATION Name: YARA CALI Room #: REG CL [place]issa#: [id number] Admission: 05/23/19 ������������������ Attend Phys: Oswald Tyson DO Discharge: ������������������ Date of : 48 Report #: [id number] stable condition. No apparent complications. After meeting discharge criteria, the patient was then discharged home. ��������������������������������������������� ���������������������������������������� By: ��������������������������������������������� 1728 1004 Oswald Tyson DO /nt
[2019-05-23 13:59] VITALS: BP 136/89
--- NOTE | 2019-05-23 14:29 | NUR ---
Pain Clinic Assessment: 1. History of Osteoarthritis: Not Applicable History of Rheumatoid Arthritis: Not Applicable 2. Height: 5 ft. 7 in. 170.2 cm. Weight: 162.6 lb. oz. 73.755 kg. Patient's BMI: 25.5 3. Vital Signs: BP: 136/89 Pulse: 95 Resp: 16 Temp: 02 Sat: 100 ECG Mon: 4. Pain Intensity: 10 5. Fall Risk: Dizziness: N Needs help standing or walking: N Fallen in the last 3 months: N Fall risk comments: 6. Patient on Blood Thinner: None 7. History of Hypertension: Y 8. Opioid Therapy greater than 6 weeks: N Opiate Contract Signed: 9. Risk Assessment Tool Provided: 0-low 10. Functional Assessment Tool: 70/70 11. Recreational Drug Use: Never Drug Type: Tobacco Use: Never Smoker Tobacco Type: Amount or Packs/day: How Many Years: Alcohol Use: Yes Frequency: Special Occasions Quant:
== END | disposition home or self-care (01) ==
LOC: PAIN 07:00
DX: M47.27 Other spondylosis with radiculopathy, lumbosacral region (principal); M51.16 Intervertebral disc disorders with radiculopathy, lumbar region; G89.29 Other chronic pain; Z79.82 Long term (current) use of aspirin; Z79.899 Other long term (current) drug therapy

== ENCOUNTER → 2019-06-27 | Outpatient (CLI) | payer BC, OTHER ==
[~2019-06-27] VITALS: Ht 170.2 cm; Wt 72.9 kg
--- NOTE | ~2019-06-27 | HPC ---
[facility] [place] [place] [address] PAIN MANAGEMENT CONSULTATION Name: YARA CALI Room #: REG [facility]..#: [id number] Admission: 06/27/19 ������������������ Attend Phys: Oswald Tyson DO Discharge: ������������������ Date of : 48 Report #: [id number] THIS REPORT FOR: //name// CC: Oswald Kamara DATE OF SERVICE: 06/27/2019 CHIEF COMPLAINT: Left neck pain. HISTORY OF PRESENT ILLNESS: As you know, the patient is a 69-year-old female who reports continued left neck pain for which she gives a pain level of 9/10. She has imaging of her cervical spine, which shows changes at the left C2-3 and C3-4 facets. She returns today to undergo injection in the area. She has considered this as an option and does wish to proceed with that procedure today. She is placing pain today at around 9/10. Pain is exacerbated with activities, improves with rest and relaxation. ALLERGIES: No known drug allergies. CURRENT MEDICATIONS: Aspirin, fluticasone, Trulicity gabapentin, Janumet, montelukast sodium, Symbicort, potassium chloride, diltiazem, ipratropium bromide, furosemide, hydrochlorothiazide, estradiol. SOCIAL HISTORY: The patient denies tobacco, alcohol or IV illicit drug use. IMAGING: There is no new re-reviewed imaging from prior studies. PHYSICAL EXAMINATION: VITAL SIGNS: Blood pressure 145/85, pulse 88, respiratory rate 16 and unlabored. The patient is 100% on room air. Height 5 feet 7 inches tall, weight 160.8 pounds and BMI calculated 25.2. GENERAL: Well-developed, well-nourished, well-hydrated 69-year-old female appearing stated age, pain is rated today 9/10. HEENT: Normocephalic, atraumatic. Pupils equal, round and reactive to light. EXTREMITIES: Show no clubbing, no cyanosis, and no edema. MUSCULOSKELETAL: There is some palpatory tenderness over the paraspinal musculature of cervical spine, left-sided only. Deep palpation of the area causes intensification of pain. Cervical provocation testing including extension, rotation, lateral flexion to the left all intensify symptoms, negative to right. Spurling's test is negative. ASSESSMENT: 1. Cervical spondylosis without radiculopathy. 2. Cervical facet arthropathy. [address] [address] PAIN MANAGEMENT CONSULTATION Name: YARA CALI Room #: REG CLI [facility]#: [id number] Admission: 06/27/19 ������������������ Attend Phys: Oswald Tyson DO Discharge: ������������������ Date of : 48 Report #: [id number] 3. Cervicalgia. 4. Chronic intractable pain. PLAN: 1. The patient returns today in followup visit with continued left neck pain. We have discussed in the past possibility of having the patient undergo intra-articular facet injections at C2-3 and C3-4. The patient is amenable to undergo the procedure today. She has been advised risks and benefits of this procedure. These risks include, but are not necessarily limited to bleeding, bruising, infection, worsening pain, no relief of pain, also risk of temporary or permanent muscle weakness, temporary or permanent nerve damage, possible paralysis, post-dural puncture headache and . The patient states understood and wished to proceed. 2. No medication changes made at today's visit. The patient will continue current medical therapy as previously prescribed. 3. We will see the patient back in followup visit on an as needed basis to address either recurrent neck pain or her chronic low back pain. PROCEDURE NOTE: DESCRIPTION OF PROCEDURE: Left C2-3, C3-4 intra-articular facet injections under fluoroscopic guidance. After obtaining written consent, the patient was taken back to fluoroscopy suite, placed on prone position. She was placed on separate pillows under chest and forehead to decrease cervical lordosis. Skin overlying the cervical area on the left was then prepped and draped in aseptic fashion. AP imaging was obtained to confirm the C2-3 and C3-4 facet joint location on the left. These areas were then marked sterilely with a sterile marker. Next, 1 mL of lidocaine 1% was injected utilizing a 27-gauge 1-1/4 inch needle at each site for a total of 200 mL being provided. Two 22-gauge 3-1/2 inch spinal needles with bent tips were advanced towards the left C2-3 and C3-4 facet joints. [place] were advanced until reaching the inferior portion of the joint. Touching the bone indicated that the needles were placed appropriately and not too deeply. Lateral imaging was then obtained to confirm the position of the needles just inferior to the left C2-3 and C3-4 facet joint. [place] were then advanced under fluoroscopic guidance into the joints and not into the articular cartilage. After negative aspiration for heme, 0.2 mL of Omnipaque injected at the C2-3 and C3-4 facet joints with good facet arthrograms noted. After negative aspiration for heme, 1.5 mL of a solution containing 1 mL, 40 mg per mL, 40 mg total triamcinolone and 2 mL bupivacaine 0.5%. [place] were then retracted approximately half way, flushed with 1 mL of 1% lidocaine and then removed. Sterile bandage placed over injection site. There were no new motor deficits present in upper extremities following procedure. [facility] [place] [address] PAIN MANAGEMENT CONSULTATION Name: YARA CALI Room #: REG DIANE Dias#: [id number] Admission: 06/27/19 ������������������ Attend Phys: Oswald Tyson DO Discharge: ������������������ Date of : 48 Report #: [id number] The patient tolerated the procedure well, carefully escorted to recovery room in stable condition. No apparent complications. After meeting our discharge criteria with a VAS a level of 0/10, the patient was discharged home. ��������������������������������������������� ���������������������������������������� By: ��������������������������������������������� 0825 2327 Oswald Tyson DO /nt
[2019-06-27 08:13] VITALS: BP 145/85
--- NOTE | 2019-06-27 08:32 | NUR ---
Pain Clinic Assessment: 1. History of Osteoarthritis: Not Applicable History of Rheumatoid Arthritis: Not Applicable 2. Height: 5 ft. 7 in. 170.2 cm. Weight: 160.8 lb. oz. 72.938 kg. Patient's BMI: 25.2 3. Vital Signs: BP: 145/85 Pulse: 88 Resp: 16 Temp: 02 Sat: 100 ECG Mon: 4. Pain Intensity: 9 5. Fall Risk: Dizziness: N Needs help standing or walking: N Fallen in the last 3 months: N Fall risk comments: 6. Patient on Blood Thinner: None 7. History of Hypertension: Y 8. Opioid Therapy greater than 6 weeks: N Opiate Contract Signed: 9. Risk Assessment Tool Provided: 0-low 10. Functional Assessment Tool: 70/70 11. Recreational Drug Use: Never Drug Type: Tobacco Use: Never Smoker Tobacco Type: Amount or Packs/day: How Many Years: Alcohol Use: Yes Frequency: Quant:
== END | disposition home or self-care (01) ==
LOC: PAIN 06:45
DX: M47.812 Spondylosis without myelopathy or radiculopathy, cervical region (principal); M54.2 Cervicalgia; G89.29 Other chronic pain; I10 Essential (primary) hypertension; G43.909 Migraine, unspecified, not intractable, without status migrainosus; J45.909 Unspecified asthma, uncomplicated; Z79.82 Long term (current) use of aspirin; Z79.899 Other long term (current) drug therapy; Z98.890 Other specified postprocedural states

== ENCOUNTER → 2019-07-14 | Outpatient (CLI) | payer BC, OTHER ==
--- NOTE | 2019-07-14 14:41 | 2DMMODE ---
[facility] [place] [address] 2 D/M-MODE ECHOCARDIOGRAM Name: YARA CALI Room #: REG [facility]#: [id number] ������������� Admission: 07/14/19 ������������� Attend Phys: Tania Finn RN Discharge: ��� ������������� ��� Date of : 48 �������������������� �� Report #: [id number] �������� ��������������������������������������������[id number] THIS REPORT FOR: //name// APPROVED REPORT Study performed: 07/14/2019 13:13:09 EXAM: Comprehensive 2D, Doppler, and color-flow Echocardiogram Patient Location: Out-Patient Status: routine BSA: 1.84 HR: 77 bpm BP: 128/78 mmHg Rhythm: NSR Other Information Study Quality: Good Indications New murmur. Hx: TIA, DM, HTN. 2D Dimensions RVDd: 28.67 mm IVSd: 14.00 (7-11mm) LVOT Diam: 21.38 (18-24mm) LVDd: 40.03 mm PWd: 12.25 (7-11mm) LVDs: 27.19 (25-40mm) Aortic Root: 34.64 mm Volumes Left Atrial Volume (Systole) Single Plane 4CH: 42.03 mL Single Plane 2CH: 44.90 mL LA ESV Index: 27.00 mL/m2 Aortic Valve AoV Peak Roberto.: 2.53 m/s AO Peak Gr.: 25.53 mmHg LVOT Max P.88 mmHg AO Mean Gr.: 15.57 mmHg AO V2 Mean: 1.91 m/s LVOT Max V: 1.21 m/s AO V2 VTI: 52.97 cm ORQUIDEA Vmax: 1.72 cm2 AI Vmax: 4.80 m/s AI [place]: 3.68 m/s2 [facility] [email or web address] [address] 2 D/M-MODE ECHOCARDIOGRAM Name: YARA CALI Room #: [facility]#: [id number] ������������� Admission: 07/14/19 ������������� Attend Phys: Tania Finn RN Discharge: ��� ������������� ��� Date of : 48 �������������������� �� Report #: [id number] �������� ��������������������������������������������[id number] PHT: 378.12 ms Mitral Valve E/A Ratio: 0.5 MV Decel. Time: 188.70 ms MV E Max Roberto.: 0.65 m/s MV A Roberto.: 1.33 m/s MV PHT: 54.72 ms IVRT: 78.43 ms Pulmonary Valve PV Peak Roberto.: 0.84 m/s PV Peak Gr.: 2.79 mmHg Tricuspid Valve TR Peak Roberto.: 1.72 m/s RAP Estimate: 5.00 mmHg TR Peak Gr.: 12.00 mmHg PA Pressure: 17.00 mmHg Left Ventricle The left ventricle is normal size. There is normal LV segmental wall motion. Mild concentric left ventricular hypertrophy. Moderate basal septal hypertrophy is present. Left ventricular systolic function is normal. LVEF is 65%. Mild diastolic dysfunction is present (impaired relaxation pattern). Right Ventricle The right ventricle is normal size. The right ventricular systolic function is normal. Atria The left atrium size is normal. The right atrium size is normal. Aortic Valve Aortic valve is moderately calcified. Mild to moderate aortic regurgitation. There is mild valvular aortic stenosis. Calculated aortic valve area is 1.7 cm2 with maximum pressure gradient of 26 mmHg and mean pressure gradient of 16 mmHg. Mitral Valve Mitral valve leaflets are mildly thickened. Moderate mitral annular calcification. Mild to moderate mitral regurgitation. No evidence of mitral valve stenosis. Tricuspid Valve The tricuspid valve is normal in structure. Trace tricuspid [facility] [address] [email or web address] [address] 2 D/M-MODE ECHOCARDIOGRAM Name: YARA CALI Room #: REG [facility]#: [id number] ������������� Admission: 07/14/19 ������������� Attend Phys: Tania Finn RN Discharge: ��� ������������� ��� Date of : 48 �������������������� �� Report #: [id number] �������� ��������������������������������������������[id number] regurgitation. Estimated PAP is less than 20mmHg. Pulmonic Valve The pulmonary valve is normal in structure. Trace pulmonic regurgitation. Great Vessels The aortic root is normal in size. Ascending aorta is not well visualized. IVC is normal in size and collapses >50% with inspiration. Pericardium There is no pericardial effusion. <Conclusion> The left ventricle is normal size. LVEF is 65%. Aortic valve is moderately calcified. Mild to moderate aortic regurgitation. There is mild valvular aortic stenosis. Calculated aortic valve area is 1.7 cm2 with maximum pressure gradient of 26 mmHg and mean pressure gradient of 16 mmHg. Mitral valve leaflets are mildly thickened. Moderate mitral annular calcification. Mild to moderate mitral regurgitation. The tricuspid valve is normal in structure. Trace tricuspid regurgitation. Estimated PAP is less than 20mmHg. The pulmonary valve is normal in structure. Trace pulmonic regurgitation. There is no pericardial effusion. ��������������������������������������������� <ELECTRONICALLY SIGNED> ���������������������������������������� By: Dale Quick MD ��������������������������������������������� 07/14/19 1441 [id number] Dale Quick MD /INF
== END ==
LOC: CV 12:31
DX: I08.0 Rheumatic disorders of both mitral and aortic valves (principal); E11.9 Type 2 diabetes mellitus without complications; I11.9 Hypertensive heart disease without heart failure

== ENCOUNTER → 2019-09-06 | Outpatient (CLI) | payer BC, OTHER | LOC: RAD 15:11 | DX: J45.40 Moderate persistent asthma, uncomplicated (principal) ==

== ENCOUNTER → 2019-09-11 | Outpatient (CLI) | payer BC, OTHER | LOC: CAT 10:07 | DX: R29.898 Other symptoms and signs involving the musculoskeletal system (principal); R51 Headache ==

== ENCOUNTER → 2019-09-19 | Outpatient (CLI) | payer BC, OTHER ==
[~2019-09-19] VITALS: Ht 170.2 cm; Wt 74.6 kg
[2019-09-19 09:25] VITALS: BP 118/92
--- NOTE | 2019-09-19 09:54 | NUR ---
Pain Clinic Assessment: 1. History of Osteoarthritis: Not Applicable History of Rheumatoid Arthritis: Not Applicable 2. Height: 5 ft. 7 in. 170.2 cm. Weight: 164.4 lb. oz. 74.571 kg. Patient's BMI: 25.7 3. Vital Signs: BP: 118/92 Pulse: 95 Resp: 16 Temp: 02 Sat: 100 ECG Mon: 4. Pain Intensity: 10 5. Fall Risk: Dizziness: N Needs help standing or walking: N Fallen in the last 3 months: N Fall risk comments: 6. Patient on Blood Thinner: None 7. History of Hypertension: Y 8. Opioid Therapy greater than 6 weeks: N Opiate Contract Signed: 9. Risk Assessment Tool Provided: 0-low 10. Functional Assessment Tool: 70/70 11. Recreational Drug Use: Never Drug Type: Tobacco Use: Never Smoker Tobacco Type: Amount or Packs/day: How Many Years: Alcohol Use: Yes Frequency: Quant:
--- NOTE | 2019-09-19 16:27 | HPC ---
[facility] [address] [place] [address] PAIN MANAGEMENT CONSULTATION Name: YARA CALI [facility] [id number] Admission: 09/19/19 Attend Phys: Oswald Tyson DO Discharge: Date of : 48 Report #: [id number] THIS REPORT FOR: //name// CC: Oswald Tyson DATE OF SERVICE: 09/19/2019 CHIEF COMPLAINT: Right low back pain, right lower extremity pain with paresthesias. HISTORY OF PRESENT ILLNESS: As you know, the patient is a 69-year-old female who returns today in followup visit with recurrent low back pain, right lower extremity pain with paresthesias. The patient is placing pain today at 10/10. States pain is chronic, aching, shooting, throbbing, numbness and tingling in sensation, exacerbated with weather, bending, standing and sitting, improves with ibuprofen, epidural injections and heat. She returns today in followup visit to undergo next in the series of lumbar epidural injections under fluoroscopic guidance. The most recent lumbar epidural injection provided good and prolonged benefit, but unfortunately, her symptoms have begun to return. She returns today to undergo next in the series. She denies new injury or trauma. ALLERGIES: No known drug allergies. CURRENT MEDICATIONS: Aspirin, fluticasone, estradiol, hydrochlorothiazide, Fioricet, ipratropium bromide, diltiazem, potassium chloride, Symbicort, montelukast sodium, Janumet, gabapentin and Trulicity. SOCIAL HISTORY: The patient reports no changes in her social history. PHYSICAL EXAMINATION: VITAL SIGNS: Blood pressure 118/92, pulse 95, respiratory rate 16 and unlabored. The patient is 100% on room air. Height 5 feet 7 inches tall, weight 164.4 pounds, BMI calculated 25.7. GENERAL: Well-developed, well-nourished, well-hydrated 69-year-old female, appears her stated age. Current pain score is rated at 10/10. HEENT: Normocephalic, atraumatic. Pupils equal, round, reactive to light. EXTREMITIES: Show no clubbing, no cyanosis, and no edema. MUSCULOSKELETAL: Lower extremity strength equal and symmetrical 5/5. Slight giveaway strength noted with hip flexion, knee extension on the right when compared to left. Seated straight leg raising positive right. Supine straight leg raising positive right. Gait is antalgic favoring right lower extremity over left. ASSESSMENT: [facility] [address] [place] [address] PAIN MANAGEMENT CONSULTATION Name: YARA CALI [facility] [id number] Admission: 09/19/19 Attend Phys: Oswald Tyson DO Discharge: Date of : 48 Report #: [id number] 1. Symptomatic lumbar radiculopathy. 2. Displacement of lumbar intervertebral disk with radiculopathy. 3. Lumbosacral spondylosis with radiculopathy. 4. Lumbar degeneration. 5. Chronic intractable pain. PLAN: 1. The patient returns today in followup visit with recurrent low back pain, right lower extremity pain for which she gives a pain score 10/10. She denies injury or trauma that may have led to symptom development. Distribution of symptoms correlates with the L5 dermatome on the right. We discussed with the patient treatment options and she chose to undergo a lumbar epidural injection under fluoroscopic guidance. The patient was advised risks and benefits of a lumbar epidural injection. These risks include but are not necessarily limited to bleeding, bruising, infection, worsening pain, no relief of pain, also risk of temporary or permanent muscle weakness, temporary or permanent nerve damage, possible paralysis, post-dural puncture headache and . The patient states understood and wished to proceed. 2. No medication changes made at today's visit. The patient will continue current medical therapy as previously prescribed. 3. We will see the patient back in followup visit to undergo next in the series of lumbar epidural injections as necessary. DESCRIPTION OF PROCEDURE: L5-S1 right paramedian epidural steroid injection under fluoroscopic guidance. After obtaining written consent, the patient was taken back to fluoroscopy suite, placed in prone position with pillow under abdomen to decrease lumbar lordosis. Skin overlying lumbosacral area then prepped and draped in aseptic fashion. The L5-S1 vertebral interspace identified by AP fluoroscopy. Skin and subcutaneous tissue overlying target site of injection anesthetized with 3 mL of 1% lidocaine. A 20-gauge 3-1/2 inch Tuohy needle advanced under fluoroscopic guidance towards the epidural space using a right paramedian approach. Epidural space identified using loss of resistance to air technique. After negative aspiration for heme or cerebrospinal fluid, 1 mL of Omnipaque injected. Lumbar epidurogram confirmed using both AP and lateral fluoroscopy. After negative aspiration for heme or cerebrospinal fluid, 5 mL of a solution containing 2 mL 40 mg per mL, 80 mg total triamcinolone along with 3 mL lidocaine 1% injected slowly. Needle retracted shelter, flushed with 1 mL of 1% lidocaine and removed. Sterile bandage placed over injection site. No new motor deficits present in lower extremity following procedure. The patient tolerated the procedure well, carefully escorted to recovery room in [address] [address] PAIN MANAGEMENT CONSULTATION Name: YARA CALI Room #: REG [facility] Yuko#: [id number] Admission: 09/19/19 Attend Phys: Oswald Tyson DO Discharge: Date of : 48 Report #: [id number] stable condition. No apparent complications. After meeting discharge criteria, the patient discharged home. <ELECTRONICALLY SIGNED> By: Oswald Tyson DO 09/19/19 1627 1020 1036 Oswald Tyson DO /nt
== END | disposition home or self-care (01) ==
LOC: PAIN 06:47
DX: M51.16 Intervertebral disc disorders with radiculopathy, lumbar region (principal); M47.27 Other spondylosis with radiculopathy, lumbosacral region; G89.29 Other chronic pain; I10 Essential (primary) hypertension; J45.909 Unspecified asthma, uncomplicated; G43.909 Migraine, unspecified, not intractable, without status migrainosus; Z98.890 Other specified postprocedural states; Z79.899 Other long term (current) drug therapy; Z79.82 Long term (current) use of aspirin; Z86.73 Personal history of transient ischemic attack (TIA), and cerebral infarction without residual deficits

== ENCOUNTER → 2019-12-05 | Outpatient (CLI) | payer BC, OTHER ==
[~2019-12-05] VITALS: Ht 170.2 cm; Wt 77.0 kg
[2019-12-05 13:56] VITALS: BP 131/81
--- NOTE | 2019-12-05 13:57 | NUR ---
Pain Clinic Assessment: 1. History of Osteoarthritis: Not Applicable History of Rheumatoid Arthritis: Not Applicable 2. Height: 5 ft. 7 in. 170.2 cm. Weight: 169.7 lb. oz. 76.975 kg. Patient's BMI: 26.6 3. Vital Signs: BP: 131/81 Pulse: 103 Resp: 18 Temp: 02 Sat: 100 ECG Mon: 4. Pain Intensity: 10 5. Fall Risk: Dizziness: N Needs help standing or walking: Y Fallen in the last 3 months: N Fall risk comments: 6. Patient on Blood Thinner: None 7. History of Hypertension: Y 8. Opioid Therapy greater than 6 weeks: N Opiate Contract Signed: 9. Risk Assessment Tool Provided: 0-low 10. Functional Assessment Tool: 70/70 11. Recreational Drug Use: Never Drug Type: Tobacco Use: Never Smoker Tobacco Type: Amount or Packs/day: How Many Years: Alcohol Use: Yes Frequency: Special Occasions Quant:
--- NOTE | 2019-12-12 08:03 | HPC ---
[facility] [place] [address] PAIN MANAGEMENT CONSULTATION Name: YARA CALI Room #: REG Liliana Alvarado.#: [id number] Admission: 12/05/19 Attend Phys: Oswald Tyson DO Discharge: Date of : 48 Report #: [id number] THIS REPORT FOR: cc: Oswald Goyal James A. DO Johnson, James E. DO ~ THIS REPORT FOR: //name// CC: Oswald Tyson DATE OF SERVICE: 12/05/2019 REFERRING PHYSICIAN: Dr. Goyal. CHIEF COMPLAINT: Low back pain, right lower extremity pain with paresthesias. HISTORY OF PRESENT ILLNESS: As you know, the patient is a 69-year-old female we have been following per the request of Dr. Goyal for lumbar radiculopathy. We initially saw the patient for neck pain in 2013. She was then lost to follow up visit until her return in 2018 where we have been addressing lumbar radicular symptoms involving the right lower extremity. She returns today in followup visit reporting that she was shopping at a local [email or web address] when she experienced a loss of function in the right foot, which sounds by description of a foot drop. She states that the pain was present as well and she was unable to walk or ambulate for up to 10 minutes to 15 minutes until the muscle tone returned. This is very concerning for changes in the lumbar region. She returns today in followup visit to discuss the possibility of undergoing an epidural injection. She did not seek evaluation through her PCP or the Emergency Department in regards to this incident at [facility]. She states she has had full return of muscle tone though just generally feels weaker on the right side. ALLERGIES: No known drug allergies. CURRENT MEDICATIONS: See chart. SOCIAL HISTORY: The patient denies tobacco, alcohol, IV or illicit drug use. She is unaccompanied today. PHYSICAL EXAMINATION: VITAL SIGNS: Blood pressure 131/81, pulse 103, respiratory rate 18 and unlabored. The patient is 100% on room air. Height 5 feet 7 inches tall, weight 169.7 pounds, BMI calculated 26.6. GENERAL: Well-developed, well-nourished, well-hydrated 69-year-old female appearing stated age, pain is rated today 10/10. [address] [address] PAIN MANAGEMENT CONSULTATION Name: YARA CALI Room #: REG DIANE Alvarado.#: [id number] Admission: 12/05/19 Attend Phys: Oswald Tyson DO Discharge: Date of : 48 Report #: [id number] HEENT: Normocephalic, atraumatic. Pupils equal, round, reactive to light. EXTREMITIES: Show no clubbing, no cyanosis, no edema. MUSCULOSKELETAL: Lower extremity strength does appear weakened with dorsiflexion on the right when compared to left. Rating of muscle tone to be about 4.5 over 5. Remaining muscle tone is 5/5. Seated straight leg raising is positive on the right. Supine straight leg raising positive on the right. Gait is antalgic favoring right lower extremity over left. ASSESSMENT: 1. Symptomatic lumbar radiculopathy. 2. Displacement of lumbar intervertebral disk with radiculopathy. 3. Lumbosacral spondylosis with radiculopathy. 4. Lumbar degeneration. 5. Chronic intractable pain. PLAN: 1. The patient returns today in followup visit requesting to undergo lumbar epidural injection under fluoroscopic guidance. She does relay information about an incident she had at the [facility] where she began to experience difficulty with ambulating on the right side and inability to dorsiflex her right foot. She was having a stroke, but did not seek evaluation. She states that the symptoms resolved in about a 10 minutes timeframe after sitting down and continuing to move her foot. This is very concerning for a new change in the lumbar spine. There is a strong possibility she is having involvement of mechanical activity upon the nerve root of the L5 leading to the plantar flexion on the right foot. The patient and I discussed this at length today. She wishes to undergo an epidural injection at today's visit, but was advised if she notes that this symptom began to contact her PCP or myself to be imaged further and determine if surgical options are necessary. Foot drop is by definition a surgical urgency. The patient was advised risks and benefits of a lumbar epidural injection. These risks include but are not necessarily limited to bleeding, bruising, infection, worsening pain, no relief of pain, also risk of temporary or permanent muscle weakness, temporary or permanent nerve damage, possible paralysis and . The patient states understood and wished to proceed. 2. No medication changes made at today's visit. The patient will continue current medical therapy as prior prescribed. 3. I will see the patient back in followup visit on an as needed basis for possible next in the series of lumbar epidural injections. The patient was advised if she does note similar foot drop on the right side again to contact her PCP or myself for further evaluation. PROCEDURE NOTE DESCRIPTION OF PROCEDURE: L5-S1 right paramedian epidural steroid injection under fluoroscopic guidance. [address] [address] PAIN MANAGEMENT CONSULTATION Name: YARA CALI Room #: REG CLI Alvarado#: [id number] Admission: 12/05/19 Attend Phys: Oswald Tyson DO Discharge: Date of : 48 Report #: [id number] After obtaining written consent, the patient was taken back to fluoroscopy suite, placed in prone position with pillow under abdomen to decrease lumbar lordosis. Skin overlying lumbosacral area then prepped and draped in aseptic fashion. The L5-S1 vertebral interspace identified by AP fluoroscopy. Skin and subcutaneous tissue overlying target site of injection anesthetized with 3 mL of 1% lidocaine. A 20-gauge 3-1/2 inch Tuohy needle advanced under fluoroscopic guidance towards the epidural space using a right paramedian approach. Epidural space identified using loss of resistance to air technique. After negative aspiration for heme or cerebrospinal fluid, 1 mL of Omnipaque injected. Lumbar epidurogram confirmed using both AP and lateral fluoroscopy. After negative aspiration for heme or cerebrospinal fluid, 5 mL of a solution containing 2 mL 40 mg per mL, 80 mg total triamcinolone along with 3 mL lidocaine 1% injected slowly. Needle retracted senior care, flushed with 1 mL of 1% lidocaine and then removed. Sterile bandage placed over injection site. There were no new motor deficits present in lower extremity following procedure. The patient tolerated procedure well, carefully escorted to recovery room in stable condition. No apparent complications. After meeting discharge criteria, the patient was discharged home. <ELECTRONICALLY SIGNED> By: Oswald Tyson DO 12/12/19 0803 1228 07 Oswald Tyson DO /gualberto
== END | disposition home or self-care (01) ==
LOC: PAIN 06:55
DX: M51.16 Intervertebral disc disorders with radiculopathy, lumbar region (principal); G89.29 Other chronic pain; M47.27 Other spondylosis with radiculopathy, lumbosacral region; I10 Essential (primary) hypertension; J45.909 Unspecified asthma, uncomplicated; G43.909 Migraine, unspecified, not intractable, without status migrainosus; Z98.890 Other specified postprocedural states; Z79.899 Other long term (current) drug therapy; Z86.73 Personal history of transient ischemic attack (TIA), and cerebral infarction without residual deficits

== ENCOUNTER → 2020-02-21 | Outpatient (CLI) | payer BC, OTHER | LOC: RAD 13:54 | DX: J98.4 Other disorders of lung (principal) ==

== ENCOUNTER → 2020-03-12 | Outpatient (CLI) | payer BC, OTHER ==
[~2020-03-12] VITALS: Ht 170.2 cm; Wt 72.8 kg
[~2020-03-12] MED LIST changes: +CLONIDINE HCL0.3 M3 PO
[2020-03-12 13:08] VITALS: BP 117/73
--- NOTE | 2020-03-12 13:32 | NUR ---
Pain Clinic Assessment: 1. History of Osteoarthritis: Not Applicable History of Rheumatoid Arthritis: Not Applicable 2. Height: 5 ft. 7 in. 170.2 cm. Weight: 160.6 lb. oz. 72.848 kg. Patient's BMI: 25.1 3. Vital Signs: BP: 117/73 Pulse: 89 Resp: 14 Temp: 02 Sat: 100 ECG Mon: 4. Pain Intensity: 7-10 5. Fall Risk: Dizziness: N Needs help standing or walking: N Fallen in the last 3 months: N Fall risk comments: 6. Patient on Blood Thinner: None 7. History of Hypertension: Y 8. Opioid Therapy greater than 6 weeks: N Opiate Contract Signed: 9. Risk Assessment Tool Provided: 0-low 10. Functional Assessment Tool: 70/70 11. Recreational Drug Use: Never Drug Type: Tobacco Use: Never Smoker Tobacco Type: Amount or Packs/day: How Many Years: Alcohol Use: Yes Frequency: Quant:
--- NOTE | 2020-03-12 15:39 | HPC ---
[facility] [place] [address] PAIN MANAGEMENT CONSULTATION Name: YARA CALI Room #: REG [facility].#: [id number] Admission: 03/12/20 Attend Phys: Oswald Tyson DO Discharge: Date of : 48 Report #: [id number] THIS REPORT FOR: cc: Oswald Goyal James A. DO Johnson, James E. DO ~ DATE OF SERVICE: 03/12/2020 REFERRING PHYSICIAN: Oswald Goyal DO CHIEF COMPLAINT: Low back pain, right lower extremity pain with paresthesias. HISTORY OF PRESENT ILLNESS: As you know, the patient is a 69-year-old female with longstanding history of low back pain and lower extremity symptoms. She has done very well with previous epidural injections, the most recent giving 80% improvement for nearly 3 months. Unfortunately, her symptoms have begun to return. She denies specific injury or trauma that may have led to symptom reoccurrence. She returns today in followup visit to undergo next in the series of epidural injections to address recurrent lumbar radicular pain. ALLERGIES: No known drug allergies. CURRENT MEDICATIONS: See chart. SOCIAL HISTORY: The patient denies tobacco, alcohol, IV or illicit drug use. She is unaccompanied at today's visit. IMAGING: There is no new imaging available. PQRS: The patient has known arthritic changes of the lumbar spine. No rheumatoid arthritis. She is placing pain intensity at 7-10/10. She is not a fall risk, has not had a fall in last 3 months. She is not on blood thinners, but is treated for hypertension. She is not on chronic opioids, but does have a low opioid addiction potential based on our assessment tool. Pain impact 70 of 70, complete interference of daily activities secondary to pain. PHYSICAL EXAMINATION: VITAL SIGNS: Blood pressure 117/73, pulse 89, respiratory rate 14 and unlabored. The patient is 100% on room air. Height 5 feet 7 inches tall, weight 160.6 pounds, BMI calculated 25.1. GENERAL: Well-developed, well-nourished, well-hydrated 69-year-old female appearing stated age, pain is rated anywhere from 7-10/10. HEENT: Normocephalic, atraumatic. Pupils equal, round, reactive to light. Speech fluent. EXTREMITIES: Show no clubbing, no cyanosis, and no edema. [facility] [address] [place] [address] PAIN MANAGEMENT CONSULTATION Name: YARA CALI [id number] Admission: 03/12/20 Attend Phys: Oswald Tyson DO Discharge: Date of : 48 Report #: [id number] MUSCULOSKELETAL: Seated straight leg raising negative. Supine straight leg raising is positive on the right. Louann's test is negative. Gait mildly antalgic favoring right lower extremity. Muscle bulk and tone equal and symmetrical in lower extremities. Ankle clonus negative. Babinski is negative. ASSESSMENT: 1. Symptomatic lumbar radiculopathy. 2. Displacement of lumbar intervertebral disk with radiculopathy. 3. Lumbosacral spondylosis with radiculopathy. 4. Lumbar degeneration. 5. Chronic intractable pain. PLAN: 1. The patient returns today in followup visit requesting to undergo next in the series of lumbar epidural injections under fluoroscopic guidance. She reports 80% improvement in overall pain lasting for 3 months with a previous epidural injection. She returns today requesting the next in the series. She has been advised risks and benefits of the procedure, states understood and wished to proceed. 2. No medication changes made at today's visit. The patient will continue current medical therapy as prior prescribed. 3. We will see the patient back in followup visit on an as needed basis for possible next in the series of epidural injections. PROCEDURE NOTE DESCRIPTION OF PROCEDURE: Right paramedian epidural steroid injection under fluoroscopic guidance. After obtaining written consent, the patient was taken back to fluoroscopy suite, placed in prone position with pillow under abdomen to decrease lumbar lordosis. The skin overlying lumbosacral area then prepped and draped in aseptic fashion. The lumbar intervertebral spaces were identified by AP fluoroscopy. Skin and subcutaneous tissue overlying target site of injection anesthetized with 3 mL of 1% lidocaine. A 20-gauge 3-1/2 inch Tuohy needle advanced under fluoroscopic guidance towards the epidural space using a paramedian approach. Epidural space identified using loss of resistance to air technique. After negative aspiration for heme or cerebrospinal fluid, 1 mL of Omnipaque injected. A lumbar epidurogram was confirmed using both AP and lateral fluoroscopy. After negative aspiration for heme or cerebrospinal fluid, 5 mL of a solution containing 2 mL 40 mg per mL, 80 mg total triamcinolone along with 3 mL of lidocaine 1% injected slowly. Needle then retracted approximately half way, flushed with 1 mL of 1% lidocaine and then removed. Sterile bandage placed over injection site. No new motor deficits present in the lower extremities following procedure. [address] [address] PAIN MANAGEMENT CONSULTATION Name: YARA CALI Room #: [facility]#: [id number] Admission: 03/12/20 Attend Phys: Oswald Tyson DO Discharge: Date of : 48 Report #: [id number] The patient tolerated procedure well, carefully escorted to recovery room in stable condition. No apparent complications. After meeting discharge criteria, the patient discharged home. <ELECTRONICALLY SIGNED> By: Oswald Tyson DO 03/12/20 1539 1457 1521 Oswald Tyson DO /nt
== END | disposition home or self-care (01) ==
LOC: PAIN 06:54
DX: M51.16 Intervertebral disc disorders with radiculopathy, lumbar region (principal); M47.27 Other spondylosis with radiculopathy, lumbosacral region; G89.29 Other chronic pain; I10 Essential (primary) hypertension; J45.909 Unspecified asthma, uncomplicated; Z98.890 Other specified postprocedural states; Z79.899 Other long term (current) drug therapy; Z86.73 Personal history of transient ischemic attack (TIA), and cerebral infarction without residual deficits

== ENCOUNTER → 2020-04-08 | Outpatient (CLI) | payer BC, OTHER | LOC: BC 08:54 | PROVIDERS: ATTEND Family Medicine | DX: Z12.31 Encounter for screening mammogram for malignant neoplasm of breast (principal) ==

== ENCOUNTER → 2020-05-28 | Outpatient (CLI) | payer BC, OTHER ==
[~2020-05-28] VITALS: Ht 170.2 cm; Wt 70.4 kg
[2020-05-28 08:05] VITALS: BP 103/91
--- NOTE | 2020-05-28 08:12 | NUR ---
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 Height: 5 ft. 7 in. 170.2 cm. Weight: 155.2 lb. oz. 70.398 kg. Patient's BMI: 24.3 3. Vital Signs: BP: 103/91 Pulse: 92 Resp: 18 Temp: 02 Sat: 100 ECG Mon: 4. Pain Intensity: 10 5. Fall Risk: Dizziness: N Needs help standing or walking: N Fallen in the last 3 months: N Fall risk comments: 6. Patient on Blood Thinner: None 7. History of Hypertension: Y 8. Opioid Therapy greater than 6 weeks: N Opiate Contract Signed: 9. Risk Assessment Tool Provided: 0-low 10. Functional Assessment Tool: 70/70 11. Recreational Drug Use: Never Drug Type: Tobacco Use: Never Smoker Tobacco Type: Amount or Packs/day: How Many Years: Alcohol Use: Yes Frequency: Special Occasions Quant: 1-2
--- NOTE | 2020-05-29 14:21 | HPC ---
[facility] [place] [address] PAIN MANAGEMENT CONSULTATION Name: YARA CALI Room #: REG DIANE AmadoAmadorKrzysztof.#: [id number] Admission: 05/28/20 Attend Phys: Oswald Tyson DO Discharge: Date of : 48 Report #: [id number] THIS REPORT FOR: cc: Oswald Goyal James A. DO Johnson, James E. DO ~ DATE OF SERVICE: 05/28/2020 REFERRING PHYSICIAN: Dr. Goyal. CHIEF COMPLAINT: Low back pain, right lower extremity pain with paresthesias, intermittent left lower extremity pain. HISTORY OF PRESENT ILLNESS: As you know, the patient is a 70-year-old female with long-standing history of lumbar radicular symptoms mainly involving low back and right lower extremity. The patient indicates that a couple of days ago she was complaining of mainly just the low back and right lower extremity pain when she began to experience left lower extremity pain lasting for nearly 24 hours. This has resolved since that time, but did cause the patient's increased discomfort. She returns today in followup visit to undergo lumbar epidural injection under fluoroscopic guidance and to discuss this new onset of left lower extremity pain. She is placing pain score at 10/10. States pain is radiating and sharp. Describes pain exacerbated with bending, standing, sitting and weather changes and improves with medications, elevating her legs in a reclining position and lumbar epidural injections. She returns today for the next in a series of lumbar epidural injections to address lumbar radicular symptoms that have recurred without injury or trauma. ALLERGIES: No known drug allergies. CURRENT MEDICATIONS: Clonidine, aspirin, Trulicity, gabapentin, Janumet, hydrochlorothiazide, estradiol, Fioricet, ipratropium bromide, diltiazem, potassium, Symbicort and montelukast sodium. SOCIAL HISTORY: The patient denies tobacco, alcohol, IV or illicit drug use. She is unaccompanied today. IMAGING: No new imaging available. PQRS: The patient has known arthritic changes of the lumbar spine, bilateral hips and knees. No rheumatoid arthritis. She is placing pain today at 10/10. She is not a fall risk nor has she had a fall in last 3 months. She is not on blood thinners, but is treated for hypertension. She is on no chronic opioids, has a low opiate addiction potential. Pain impact today 17 of 70. Complete interference of daily activities secondary to pain. [facility] [address] [place] [address] PAIN MANAGEMENT CONSULTATION Name: YARA CALI Room #: REG CLLiliana Larissa#: [id number] Admission: 05/28/20 Attend Phys: Oswald Tyson DO Discharge: Date of : 48 Report #: [id number] PHYSICAL EXAMINATION: VITAL SIGNS: Blood pressure 103/91, pulse 92, respiratory rate 18 and unlabored. The patient is 100% on room air. Height 5 feet 7 inches tall, weight 155.2 pounds, BMI calculated 24.3. GENERAL: Well-developed, well-nourished, well-hydrated 70-year-old female appearing stated age, pain is rated today 10/10. HEENT: Normocephalic, atraumatic. Pupils equal, round and reactive. NEUROLOGIC: Speech fluent. The patient is wearing a mask in compliance with COVID-19. EXTREMITIES: Show no clubbing, no cyanosis, no edema. MUSCULOSKELETAL: Seated straight leg raising remains negative. Supine straight leg raising is positive on the right, negative left. Louann's test is negative. Modified Gaenslen's is positive for axial low back pain. Ankle clonus negative. Babinski is negative. She appears to be intact to light touch from L1 through S2 dermatomes. ASSESSMENT: 1. Symptomatic lumbar radiculopathy. 2. Displacement of lumbar intervertebral disk with radiculopathy. 3. Lumbosacral spondylosis with radiculopathy. 4. Lumbar degeneration. 5. Chronic intractable pain. PLAN: 1. The patient returns today in followup visit requesting to undergo lumbar epidural injection under fluoroscopic guidance to address recurrent low back pain, right lower extremity pain with paresthesias. The patient has been advised risks and benefits of the procedure, states understood and wished to proceed. 2. The patient does indicate concerned about a new onset of left lower extremity symptoms that was present for about 24 hours. It does correlate with the L3-4 findings of disk extrusion with lateral recess stenosis on the left consistent with the distribution of pain the patient is experiencing. We discussed this with the patient today. The fact that it has resolved his sign that there has been no significant change in the area and we would recommend watchful waiting. The patient is agreeable. 3. No medication changes made at today's visit. The patient will continue current medical therapy as previously prescribed. 4. We will see the patient back in followup visit on an as needed basis, possible next in the series of lumbar epidural injections. We are pleased that the patient has done well with previous injections and hopeful to see similar improvement today. DESCRIPTION OF PROCEDURE: L4-5 right paramedian epidural steroid injection under fluoroscopic guidance. [address] [address] PAIN MANAGEMENT CONSULTATION Name: YARA CALI Room #: REG DIANE Dias#: [id number] Admission: 05/28/20 Attend Phys: Oswald Tyson DO Discharge: Date of : 48 Report #: [id number] After obtaining written consent, the patient was taken back to fluoroscopy suite, placed in prone position with pillow under abdomen to decrease lumbar lordosis. Skin overlying lumbosacral area then prepped and draped in aseptic fashion. The L4-5 vertebral interspace was identified by AP fluoroscopy. Skin and subcutaneous tissue overlying target site injection anesthetized with 3 mL of 1% lidocaine. A 20-gauge 3-1/2 inch Tuohy needle advanced under fluoroscopic guidance towards the epidural space using a right paramedian approach. Epidural space was identified using loss of resistance to air technique. After negative aspiration for heme or cerebrospinal fluid, 1 mL of Omnipaque injected. Lumbar epidurogram confirmed using both AP and lateral fluoroscopy. After negative aspiration for heme or cerebrospinal fluid, 5 mL of a solution containing 2 mL 40 mg per mL, 80 mg total triamcinolone along with 3 mL of lidocaine 1% injected slowly. Needle retracted fci, flushed with 1 mL of 1% lidocaine and then removed. Sterile bandage placed over injection site. There were no new motor deficits present in the lower extremities following procedure. The patient tolerated procedure well, carefully escorted to recovery room in stable condition. No apparent complications. After meeting our discharge criteria, the patient is discharged to home. <ELECTRONICALLY SIGNED> By: Oswald Tyson DO 05/29/20 1421 0854 1 Oswald Tyson DO /gualberto
== END ==
LOC: PAIN 06:42
PROVIDERS: ATTEND Anesthesiology Pain Medicine
DX: M54.5 Low back pain (principal); M51.16 Intervertebral disc disorders with radiculopathy, lumbar region; G89.29 Other chronic pain; G43.909 Migraine, unspecified, not intractable, without status migrainosus; J45.909 Unspecified asthma, uncomplicated; Z79.899 Other long term (current) drug therapy; Z72.89 Other problems related to lifestyle

== ENCOUNTER → 2020-07-23 | Outpatient (CLI) | payer BC, OTHER ==
[~2020-07-23] VITALS: Ht 170.2 cm; Wt 68.6 kg
--- NOTE | ~2020-07-23 | HPC ---
[facility] [place] [address] PAIN MANAGEMENT CONSULTATION Name: YARA CALI Room #: REG [facility] Alvarado.#: [id number] Admission: 07/23/20 Attend Phys: Oswald Tyson DO Discharge: Date of : 48 Report #: [id number] THIS REPORT FOR: cc: Oswald Goyal James A. DO Johnson, James E. DO ~ CC: Oswald Kamara DATE OF SERVICE: 07/23/2020 REFERRING PHYSICIAN: Oswald Goyal DO CHIEF COMPLAINT: Low back pain, right lower extremity pain and paresthesias, intermittent left lower extremity pain. HISTORY OF PRESENT ILLNESS: As you know, the patient is a 70-year-old female with longstanding history of lumbar radicular symptoms mainly involving the low back and right lower extremity. The patient has been undergoing epidural injections under fluoroscopic guidance with good analgesic benefit. She reports the previous epidural injection gave improvement in symptoms of greater than 80%. Unfortunately, her symptoms began to return. She sought evaluation and treatment through chiropractic manipulation, which exacerbated her symptoms. She subsequently discontinued that activity. She returns today with pain level of 10/10 requesting to undergo next in the series of epidural injections. She denies any specific injury or trauma that may have led to symptom development except for the chiropractic manipulation, which she believes exacerbated her pain. She apparently attended 5 sessions total, but then subsequently discontinued. She returns today in followup visit for a lumbar epidural injection under fluoroscopic guidance. ALLERGIES: No known drug allergies. CURRENT MEDICATIONS: See chart. SOCIAL HISTORY: The patient denies tobacco, alcohol, IV or illicit drug use. She is unaccompanied at today's visit. IMAGING: No new imaging available. PHYSICAL EXAMINATION: VITAL SIGNS: Blood pressure 152/86, pulse 86, respiratory rate 14 and unlabored. The patient is 100% on room air. Height 5 feet 7 inches tall, weight 151.2 pounds, BMI calculated at 23.7. GENERAL: Well-developed, well-nourished, well-hydrated 70-year-old female [address] [address] PAIN MANAGEMENT CONSULTATION Name: YARA CALI Room #: REG [facility]#: [id number] Admission: 07/23/20 Attend Phys: Oswald Tyson DO Discharge: Date of : 48 Report #: [id number] appearing stated age. She is placing current pain score 10/10. HEENT: Normocephalic, atraumatic. Pupils equal, round and reactive. NEUROLOGIC: Speech is fluent. The patient deemed a good historian. EXTREMITIES: Show no clubbing, no cyanosis. No noticeable edema. MUSCULOSKELETAL: The patient has antalgic gait favoring the right lower extremity over left. Muscle bulk and tone is symmetrical when comparing the left lower extremity to right. Seated straight leg raising is negative. The patient does have a positive supine straight leg raising on the right. Modified Gaenslen's does show positive for axial back pain, no radiation of symptoms. ASSESSMENT: 1. Symptomatic lumbar radiculopathy. 2. Displacement of lumbar intervertebral disk with radiculopathy. 3. Lumbosacral spondylosis with radiculopathy. 4. Lumbar degeneration. 5. Chronic intractable pain. PLAN: 1. The patient returns today in followup visit requesting to undergo next in the series of lumbar epidural injections under fluoroscopic guidance. She reports excellent benefit with epidural injections, but unfortunately, her symptoms do tend to reoccur. She indicates that the recent reoccurrence had to do with chiropractic manipulation. She states she was feeling somewhat stiff and achy in the back, went to see the chiropractor and they exacerbated her symptoms. She trialled 5 sessions of chiropractic manipulation, which left her with 10/10 pain. She returns today for next in the series of epidural injections. The patient was advised risks and benefits of a lumbar epidural injection. These risks include, but are not necessarily limited to; bleeding, bruising, infection, worsening of pain, no relief of pain, temporary or permanent muscle weakness, temporary or permanent nerve damage, possible paralysis and . The patient states understood and wished to proceed. 2. No medication changes made at today's visit. The patient will continue current medical therapy as prior prescribed. 3. I will see the patient back in followup visit on an as needed basis for possible next in the series of epidural injections. We are hopeful the patient will see good and prolonged benefit with today's epidural injection. PROCEDURE NOTE DESCRIPTION OF PROCEDURE: L4-L5 right parasagittal epidural steroid injection under fluoroscopic guidance. After obtaining written consent, the patient was taken back to fluoroscopy suite, placed in prone position with pillow under abdomen to decrease lumbar lordosis. Skin overlying the lumbosacral area then prepped and draped in [address] [address] PAIN MANAGEMENT CONSULTATION Name: YARA CALI Room #: REG [facility] Alvarado#: [id number] Admission: 07/23/20 Attend Phys: Oswald Tyson DO Discharge: Date of : 48 Report #: [id number] aseptic fashion. The L4-L5 vertebral interspace identified by AP fluoroscopy. Skin and subcutaneous tissue overlying the target site of injection anesthetized with 3 mL of 1% lidocaine. A 20-gauge 3-1/2 inch Tuohy needle advanced under fluoroscopic guidance towards the epidural space using a right parasagittal approach. Epidural space identified using loss of resistance to air technique. After negative aspiration for heme or cerebrospinal fluid, 1 mL of Omnipaque injected. Lumbar epidurogram confirmed using both AP and lateral fluoroscopy. After negative aspiration for heme or cerebrospinal fluid, 5 mL of solution containing 2 mL, 40 mg per mL, 80 mg total triamcinolone along with 3 mL of lidocaine 1% injected slowly. Needle then retracted retirement, flushed with 1 mL of 1% lidocaine and then removed. Sterile bandage placed over injection site. No new motor deficits present in the lower extremities following procedure. The patient tolerated the procedure well, carefully escorted to recovery room in stable condition. No apparent complications. After meeting discharge criteria, the patient discharged home. By: [id number] Oswald Tyson DO /nt
[2020-07-23 09:02] VITALS: BP 152/86
--- NOTE | 2020-07-23 09:15 | NUR ---
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 Height: 5 ft. 7 in. 170.2 cm. Weight: 151.2 lb. oz. 68.584 kg. Patient's BMI: 23.7 3. Vital Signs: BP: 152/86 Pulse: 86 Resp: 14 Temp: 02 Sat: 100 ECG Mon: 4. Pain Intensity: 10 5. Fall Risk: Dizziness: N Needs help standing or walking: N Fallen in the last 3 months: N Fall risk comments: 6. Patient on Blood Thinner: None 7. History of Hypertension: Y 8. Opioid Therapy greater than 6 weeks: N Opiate Contract Signed: 9. Risk Assessment Tool Provided: 0-low 10. Functional Assessment Tool: 63/70 11. Recreational Drug Use: Never Drug Type: Tobacco Use: Never Smoker Tobacco Type: Amount or Packs/day: How Many Years: Alcohol Use: Yes Frequency: Quant:
== END ==
LOC: PAIN 06:42
PROVIDERS: ATTEND Anesthesiology Pain Medicine
DX: M54.5 Low back pain (principal); M51.16 Intervertebral disc disorders with radiculopathy, lumbar region; M47.817 Spondylosis without myelopathy or radiculopathy, lumbosacral region; G89.29 Other chronic pain; G43.909 Migraine, unspecified, not intractable, without status migrainosus; J45.901 Unspecified asthma with (acute) exacerbation; Z79.899 Other long term (current) drug therapy; Z72.89 Other problems related to lifestyle; Z86.73 Personal history of transient ischemic attack (TIA), and cerebral infarction without residual deficits; Z98.890 Other specified postprocedural states

== ENCOUNTER → 2020-10-15 | Outpatient (CLI) | payer BC, OTHER ==
[~2020-10-15] VITALS: Ht 170.2 cm; Wt 67.0 kg
[2020-10-15 12:26] VITALS: BP 159/92
--- NOTE | 2020-10-15 12:34 | NUR ---
Pain Clinic Assessment: 1. 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 Height: 5 ft. 7 in. 170.2 cm. Weight: 147.6 lb. oz. 66.951 kg. Patient's BMI: 23.1 3. Vital Signs: BP: 159/92 Pulse: 92 Resp: 16 Temp: 02 Sat: 99 ECG Mon: 4. Pain Intensity: 8 5. Fall Risk: Dizziness: N Needs help standing or walking: N Fallen in the last 3 months: N Fall risk comments: 6. Patient on Blood Thinner: None 7. History of Hypertension: Y 8. Opioid Therapy greater than 6 weeks: N Opiate Contract Signed: 9. Risk Assessment Tool Provided: 0-low 10. Functional Assessment Tool: 63/70 11. Recreational Drug Use: Never Drug Type: Tobacco Use: Never Smoker Tobacco Type: Amount or Packs/day: How Many Years: Alcohol Use: Yes Frequency: Special Occasions Quant: 1
--- NOTE | 2020-10-16 11:33 | H ---
[facility] [place] [address] HISTORY AND PHYSICAL Name: YARA CALI Room #: REG [facility]#: [id number] Admission: 10/15/20 Attend Phys: Oswald Tyson DO Discharge: Date of : 48 Report #: [id number] THIS REPORT FOR: cc: Oswald Goyal James A. DO Johnson, James E. DO ~ DATE OF SERVICE: 10/15/2020 REFERRING PHYSICIAN: Oswald Goyal DO CHIEF COMPLAINT: Low back pain, lower extremity pain with paresthesias. HISTORY OF PRESENT ILLNESS: As you know, the patient is a pleasant 70-year-old female with longstanding history of lumbar radiculopathy, mainly involving the low back and right lower extremity with intermittent left lower extremity symptoms. She has undergone epidural injections under fluoroscopic guidance with good benefit. Most recent epidural injection per the patient improved her symptoms by 75%, lasting for nearly 2 months. She returns today in followup visit to undergo next in the series of epidural injections. She is placing her current pain score at 8/10. She has denied any injury, trauma or any changes in medical history since our last visit. ALLERGIES: No known drug allergies. CURRENT MEDICATIONS: See chart. SOCIAL HISTORY: The patient continues to deny tobacco, alcohol, IV or illicit drug use. She is unaccompanied at today's visit. IMAGING: No new imaging available. PHYSICAL EXAMINATION: VITAL SIGNS: Blood pressure 159/92, pulse 92, respiratory rate 16 and unlabored, patient is 99% on room air. Height 5 feet 7 inches tall, weight 147.6 pounds, BMI calculated 23.1. GENERAL: Well-developed, well-nourished, well-hydrated 70-year-old female appearing stated age. She is placing current pain score at 8/10. HEENT: Normocephalic, atraumatic. Pupils are round. The patient is wearing a mask in compliance with COVID-19 regulations. EXTREMITIES: Show no clubbing, no cyanosis, and no appreciable edema. MUSCULOSKELETAL: Lower extremity strength equal and symmetrical. She has a mildly antalgic gait favoring right lower extremity over left. Muscle bulk and tone is symmetrical in comparing lower extremities. Seated straight leg raising negative. Supine straight leg raising positive on the right. [address] [address] HISTORY AND PHYSICAL Name: YARA CALI Room #: REG [facility]ITALColleen[facility]#: [id number] Admission: 10/15/20 Attend Phys: Oswald Tyson DO Discharge: Date of : 48 Report #: [id number] ASSESSMENT: 1. Symptomatic lumbar radiculopathy. 2. Displacement of lumbar intervertebral disk with radiculopathy. 3. Lumbosacral spondylosis with radiculopathy. 4. Lumbar degeneration. 5. Chronic intractable pain. PLAN: 1. The patient returns today in followup visit requesting to undergo lumbar epidural injection under fluoroscopic guidance. She reports a 75% improvement in overall pain with the epidural injection provided at our last visit. Unfortunately, her symptoms have begun to return. She returns today to undergo next in the series of lumbar epidural injections. She has been advised risks and benefits of the procedure, states understood and wished to proceed. 2. No medication changes made at today's visit. The patient will continue current medical therapy as prior prescribed. 3. We will see the patient back in followup visit for possible next in the series of epidural injections on an as needed basis. We are hopeful the patient will continue to see good and prolonged benefit with each injection. PROCEDURE NOTE DESCRIPTION OF PROCEDURE: L4-L5 interlaminar epidural steroid injection under fluoroscopic guidance. After obtaining written consent, the patient was taken back to fluoroscopy suite, placed in prone position with pillow under abdomen to decrease lumbar lordosis. Skin overlying lumbosacral area prepped and draped in aseptic fashion. L4-L5 vertebral interspace identified by AP fluoroscopy. Skin and subcutaneous tissue overlying target site injection anesthetized with 3 mL of 1% lidocaine. A 20-gauge 3-1/2 inch Tuohy needle advanced under fluoroscopic guidance towards the epidural space using a paramedian approach. Epidural space identified using loss of resistance to air technique. After negative aspiration for heme or cerebrospinal fluid, 1 mL of Omnipaque injected. Lumbar epidurogram was confirmed using both AP and lateral fluoroscopy. After negative aspiration for heme or cerebrospinal fluid, 5 mL of a solution containing 2 mL 40 mg per mL, 80 mg total triamcinolone along with 3 mL of lidocaine 1% injected slowly. Needle retracted fdc, flushed with 1 mL of 1% lidocaine then removed. Sterile bandage placed over injection site. No new motor deficits present in the lower extremities following procedure. The patient tolerated procedure well, carefully escorted to recovery room in [address] [address] HISTORY AND PHYSICAL Name: YARA CALI Room #: SARITA Dias#: [id number] Admission: 10/15/20 Attend Phys: Oswald Tyson DO Discharge: Date of : 48 Report #: [id number] stable condition. No apparent complications. After meeting discharge criteria, the patient discharged home. <ELECTRONICALLY SIGNED> By: Oswald Tyson DO 10/16/20 1133 1350 1401 Oswald Tyson DO /nt
== END | disposition home or self-care (01) ==
LOC: PAIN 06:59
PROVIDERS: ATTEND Anesthesiology Pain Medicine
DX: M51.16 Intervertebral disc disorders with radiculopathy, lumbar region (principal); M47.27 Other spondylosis with radiculopathy, lumbosacral region; G89.29 Other chronic pain; I10 Essential (primary) hypertension; J45.909 Unspecified asthma, uncomplicated; Z98.890 Other specified postprocedural states; Z79.899 Other long term (current) drug therapy; Z86.73 Personal history of transient ischemic attack (TIA), and cerebral infarction without residual deficits

== ENCOUNTER → 2021-02-12 | Outpatient (CLI) | payer BC, OTHER ==
[~2021-02-12] VITALS: Ht 170.2 cm; Wt 67.6 kg
[2021-02-12 07:56] VITALS: BP 129/77
--- NOTE | 2021-02-12 08:02 | NUR ---
Pain Clinic Assessment: 1. 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 Height: 5 ft. 7 in. 170.2 cm. Weight: 149.0 lb. oz. 67.586 kg. Patient's BMI: 23.3 3. Vital Signs: BP: 129/77 Pulse: 75 Resp: 14 Temp: 02 Sat: 100 ECG Mon: 4. Pain Intensity: 9 5. Fall Risk: Dizziness: N Needs help standing or walking: N Fallen in the last 3 months: N Fall risk comments: 6. Patient on Blood Thinner: None 7. History of Hypertension: Y 8. Opioid Therapy greater than 6 weeks: N Opiate Contract Signed: 9. Risk Assessment Tool Provided: 0-low 10. Functional Assessment Tool: 63/70 11. Recreational Drug Use: Never Drug Type: Tobacco Use: Never Smoker Tobacco Type: Amount or Packs/day: How Many Years: Alcohol Use: Yes Frequency: Quant:
--- NOTE | 2021-02-25 11:26 | HPC ---
[facility] [place] [address] PAIN MANAGEMENT CONSULTATION Name: YARA CALI Room #: REG DIANE Alvarado.#: [id number] Admission: 02/12/21 Attend Phys: Oswald Tyson DO Discharge: Date of : 48 Report #: [id number] THIS REPORT FOR: cc: Oswald Goyal James A. DO Johnson, James E. DO ~ DOC #: [id number] cc: DO Oswald Cooney DO DATE OF SERVICE: 02/12/2021 CHIEF COMPLAINT: Low back pain, lower extremity pain and paresthesias. HISTORY OF PRESENT ILLNESS: As you know, the patient is a pleasant 70-year-old female who returns today in followup visit with recurrence of her lumbar radicular symptoms. She is now placing pain score at 9/10. She states her pain is achy, sharp, numbness and tingling when describing pain, exacerbated with changes in weather, bending, lifting, standing and sitting and improves with medications, heat, cold compresses, reclining in a recliner and epidural injections. The most recent epidural injection gave near 100% improvement in overall pain lasting for about three to four months with a slow and progressive return of symptoms. No inciting injury or trauma. The patient returns today in followup visit to undergo a lumbar epidural injection under fluoroscopic guidance in hopes of further improvement in symptoms. ALLERGIES: No known drug allergies. MEDICATIONS: See chart. SOCIAL HISTORY: The patient continues to deny any tobacco use. Denies IV or illicit drug use. Denies any chronic alcohol use. She is unaccompanied at today's visit. IMAGING: No new imaging available. PHYSICAL EXAMINATION: VITAL SIGNS: Blood pressure 129/77, pulse 75, respiratory rate 14 and unlabored. The patient 100% on room air. Height 5 feet 7 inches tall, weight 149 pounds, BMI calculated at 23.3. GENERAL: Well-developed, well-nourished, well-hydrated 70-year-old female, appearing stated age. Pain is rated today 9/10. HEENT: Normocephalic, atraumatic. Pupils equal, round and responsive to light. Extraocular muscles are intact. NEUROLOGIC: Speech fluent. The patient is wearing a mask in compliance with COVID-19 regulations. EXTREMITIES: Showed no clubbing, no cyanosis. No appreciable edema. [address] [address] PAIN MANAGEMENT CONSULTATION Name: YARA CALI Room #: REG [facility] SANATORIUMAmadro#: [id number] Admission: 02/12/21 Attend Phys: Oswlad Tyson DO Discharge: Date of : 48 Report #: [id number] MUSCULOSKELETAL: Lower extremity strength remained symmetrical again today. Muscle bulk and tone are symmetrical in comparing lower extremities. Seated straight leg raising negative. Supine straight leg raising remains positive on the right at about 60-degree angle. Ankle clonus negative. Babinski is negative. ASSESSMENT: 1. Symptomatic lumbar radiculopathy. 2. Displacement of lumbar intervertebral disk with radiculopathy. 3. Lumbosacral spondylosis with radiculopathy. 4. Lumbar degeneration. 5. Chronic intractable pain. PLAN: 1. The patient returns today in followup visit to undergo lumbar epidural injection under fluoroscopic guidance. The patient is very pleased with response to the treatment to date and has noted excellent benefit with each epidural injections. Most recent gave near 100% improvement in overall pain lasting for almost 4 months. Unfortunately, the patient's symptoms have begun to return. She returns today in followup visit to undergo lumbar epidural injection under fluoroscopic guidance. The patient has been advised the risks and benefits of the procedure, states she understood and wished to proceed. 2. No medication changes made at today's visit. The patient will continue current medical therapy as prior prescribed. 3. We will see the patient back in followup visit on an as needed basis for next in the series of lumbar epidural injections. PROCEDURE NOTE DESCRIPTION OF PROCEDURE: L4-L5 interlaminar epidural steroid injection under fluoroscopic guidance. After obtaining written consent, the patient was taken back to fluoroscopy suite, placed in prone position with pillow under abdomen to decrease lumbar lordosis. Skin overlying the lumbosacral area was then prepped and draped in aseptic fashion. The L4-L5 vertebral interspace identified by AP fluoroscopy. Skin and subcutaneous tissue overlying the target site of injection was anesthetized with 3 mL of 1% lidocaine. A 20 gauge 3-1/2 inch Tuohy needle was advanced under fluoroscopic guidance towards the epidural space using a paramedian approach. Epidural space identified using a loss of resistance to air technique. After negative aspiration for heme or cerebrospinal fluid, 1 mL of Omnipaque injected. Lumbar epidurogram confirmed using both AP and lateral fluoroscopy. After negative aspiration for heme or cerebrospinal fluid, 5 mL of a solution containing 2 mL 40 mg per mL 80 mg total triamcinolone along with 3 mL of lidocaine 1% was [address] [address] PAIN MANAGEMENT CONSULTATION Name: YARA CALI Room #: SARITA Dias#: [id number] Admission: 02/12/21 Attend Phys: Oswald Tyson DO Discharge: Date of : 48 Report #: [id number] injected slowly. Needle was then retracted approximately shelter flushed with 1 mL of 1% lidocaine, then removed and a sterile bandage was placed over injection site. No new motor deficits present in the lower extremities following the procedure. The patient tolerated the procedure well, carefully escorted to recovery room in stable condition. No apparent complications. After meeting discharge criteria, the patient discharged home. DO GERMAN Mares/GISSEL/KALINA <ELECTRONICALLY SIGNED> By: Oswald Tyson DO 02/25/21 1126 0930 0241 Oswald Tyson DO /nt
== END | disposition home or self-care (01) ==
LOC: PAIN 07:33
PROVIDERS: ATTEND Anesthesiology Pain Medicine
DX: M51.16 Intervertebral disc disorders with radiculopathy, lumbar region (principal); M47.27 Other spondylosis with radiculopathy, lumbosacral region; G89.29 Other chronic pain; I10 Essential (primary) hypertension; J45.909 Unspecified asthma, uncomplicated; Z98.890 Other specified postprocedural states; Z79.899 Other long term (current) drug therapy; Z86.73 Personal history of transient ischemic attack (TIA), and cerebral infarction without residual deficits

== ENCOUNTER → 2021-04-21 | Outpatient (CLI) | payer BC, OTHER | LOC: BC 09:36 | PROVIDERS: ATTEND Family Medicine | DX: Z12.31 Encounter for screening mammogram for malignant neoplasm of breast (principal) ==

== ENCOUNTER → 2021-06-04 | Outpatient (CLI) | payer BC, OTHER ==
[~2021-06-04] VITALS: Ht 170.2 cm; Wt 67.7 kg
--- NOTE | ~2021-06-04 | HPC ---
[facility] [place] [place] [address] PAIN MANAGEMENT CONSULTATION Name: YARA CALI Room #: REG DIANE Childers.#: [id number] Admission: 06/04/21 Attend Phys: Oswald Tyson DO Discharge: Date of : 48 Report #: [id number] THIS REPORT FOR: cc: Oswald Goyal,Oswald Poe DO ~ cc: Oswald Goyal DO DATE OF SERVICE: 06/04/2021 REFERRING PHYSICIAN: Dr. Goyal. CHIEF COMPLAINT: Low back pain, lower extremity pain with paresthesias. HISTORY OF PRESENT ILLNESS: As you know, the patient is a very pleasant 71-year-old female returning in followup visit with recurrence of lumbar radicular symptoms radiating from the low back down the legs. She indicates pain level of up to 10/10. She denies injury or trauma that may have led to symptom development. She returns requesting a lumbar epidural injection and she has received excellent benefit with epidural injections in the past, noting an improvement with her previous epidural injections of at least 70%. She returns today in followup visit for the next in a series of epidural injections. ALLERGIES: No known drug allergies. CURRENT MEDICATIONS: See chart. SOCIAL HISTORY: The patient denies tobacco use. Denies IV or illicit drug use. Denies any chronic alcohol use. Unaccompanied today. IMAGING: No new imaging available. PHYSICAL EXAMINATION: VITAL SIGNS: Blood pressure 114/69, pulse 93, respiratory rate 14 and unlabored. The patient is 100% on room air. Height 5 feet 7 inches tall, weight 149.2 pounds, BMI calculated 23.4. GENERAL: Well-developed, well-nourished, well-hydrated 71-year-old female appearing stated age, pain is rated today 10/10. HEENT: normocephalic, atraumatic. Pupils equal, round and responsive. She is wearing a mask in compliance with COVID-19 regulations. EXTREMITIES: Show no clubbing, no cyanosis. No appreciable edema. MUSCULOSKELETAL: Lower extremity strength is symmetrical 5/5. Muscle bulk and tone is equal and symmetrical in lower extremities. Gait is mildly antalgic. Seated straight leg raising negative. Supine straight leg raising positive on the right. Louann's test is negative. ASSESSMENT: [address] [address] PAIN MANAGEMENT CONSULTATION Name: YARA CALI Room #: REG BELiliana Dias#: [id number] Admission: 06/04/21 Attend Phys: Oswald Tyson DO Discharge: Date of : 48 Report #: [id number] 1. Symptomatic lumbar radiculopathy. 2. Displacement of lumbar intervertebral disk with radiculopathy. 3. Lumbosacral spondylosis with radiculopathy. 4. Lumbar degeneration. 5. Chronic intractable pain. PLAN: 1. The patient returns today in followup visit requesting a lumbar epidural injection under fluoroscopic guidance. She reports up to a 70% improvement in overall pain with the epidural injection provided at last visit. Unfortunately, her symptoms have begun to reoccur. No inciting injury or trauma. She returns today requesting next in the series in hopes of improving pain. She has been advised risks and benefits of the procedure, states understood and wished to proceed. 2. No medication changes made at today's visit. The patient will continue current medical therapy as prior prescribed. 3. We will plan to see the patient back in followup visit for the next in the series of epidural injections. We are hopeful the patient will once again see good and prolonged benefit with an epidural injection provided today. DESCRIPTION OF PROCEDURE: L4-L5 right paramedian epidural steroid injection under fluoroscopic guidance. After obtaining written consent, the patient was taken back to fluoroscopy suite, placed in prone position with pillow under abdomen to decrease lumbar lordosis. Skin overlying lumbosacral area then prepped and draped in aseptic fashion. The L4-5 interspace was identified by AP fluoroscopy. Skin and subcutaneous tissue overlying target site injection anesthetized with 3 mL of 1% lidocaine. A 20 gauge 3-1/2 inch Tuohy needle advanced under fluoroscopic guidance towards the epidural space using a right paramedian approach. Epidural space identified using loss of resistance to air technique. After negative aspiration for heme or cerebrospinal fluid, 1 mL of Omnipaque injected. A lumbar epidurogram was confirmed using both AP and lateral fluoroscopy. After negative aspiration for heme or cerebrospinal fluid, 5 mL solution containing 2 mL of 40 mg per mL 80 mg total triamcinolone along with 3 mL of lidocaine, 1% injected slowly. Needle retracted correction and flushed with 1 mL of 1% lidocaine, then removed. Sterile bandage placed over injection site. No new motor deficits present in the lower extremities following procedure. The patient tolerated the procedure well, carefully escorted to recovery room in [facility] [address] [place] [address] PAIN MANAGEMENT CONSULTATION Name: YARA CALI Room #: REG [facility].#: [id number] Admission: 06/04/21 Attend Phys: Oswald Tyson DO Discharge: Date of : 48 Report #: [id number] stable condition. No apparent complications. After meeting discharge criteria, the patient is discharged home. By: 1403 2220 Oswald Tyson DO /nt
[2021-06-04 09:38] VITALS: BP 114/69
--- NOTE | 2021-06-04 09:47 | NUR ---
Pain Clinic Assessment: 1. 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 Height: 5 ft. 7 in. 170.2 cm. Weight: 149.2 lb. oz. 67.677 kg. Patient's BMI: 23.4 3. Vital Signs: BP: 114/69 Pulse: 93 Resp: 14 Temp: 02 Sat: 100 ECG Mon: 4. Pain Intensity: 10 5. Fall Risk: Dizziness: N Needs help standing or walking: N Fallen in the last 3 months: N Fall risk comments: 6. Patient on Blood Thinner: None 7. History of Hypertension: Y 8. Opioid Therapy greater than 6 weeks: N Opiate Contract Signed: 9. Risk Assessment Tool Provided: 0-low 10. Functional Assessment Tool: 63/70 11. Recreational Drug Use: Never Drug Type: Tobacco Use: Never Smoker Tobacco Type: Amount or Packs/day: How Many Years: Alcohol Use: Yes Frequency: Special Occasions Quant: 2
== END | disposition home or self-care (01) ==
LOC: PAIN 06:58
PROVIDERS: ATTEND Anesthesiology Pain Medicine
DX: M51.16 Intervertebral disc disorders with radiculopathy, lumbar region (principal); M47.27 Other spondylosis with radiculopathy, lumbosacral region; G89.29 Other chronic pain; I10 Essential (primary) hypertension; J45.909 Unspecified asthma, uncomplicated; G43.909 Migraine, unspecified, not intractable, without status migrainosus; Z98.890 Other specified postprocedural states; Z79.899 Other long term (current) drug therapy; Z86.73 Personal history of transient ischemic attack (TIA), and cerebral infarction without residual deficits

== ENCOUNTER 2021-08-03 09:17 | Emergency (ER) | payer BC, OTHER ==
[~2021-08-03] VITALS: Ht 170.2 cm; Wt 67.1 kg
[2021-08-03] MEDS ORDERED: HYDROQUINONE TOP (09:44)
[2021-08-03 10:49] LABS: ABSOLUTE NEUTROPHILS 4.6 thou/uL (1.4-8.2); BASOPHILS 0.4 % (0.0-2.0); EOSINOPHILS 0.2 % (0.0-3.0); HEMATOCRIT 37.3 % (37.0-47.0); HEMOGLOBIN 12.1 gm/dL (12.0-15.0); LYMPHOCYTES 16.7 % (24.0-44.0); MCH 31.7 pg (26.0-34.0); MCHC 32.6 g/dL (28.0-37.0); MCV 97.2 fL (80.0-100.0); MONOCYTES 8.3 % (1.0-8.0); PLATELET COUNT 213 thou/uL (150-400); POLYS 74.4 % (36.0-66.0); RBC 3.84 mil/uL (4.20-5.00); RDW 13.6 % (10.5-14.5); WBC 6.1 thou/uL (4.0-11.0)
[2021-08-03 10:53] LABS: CALCIUM 8.9 mg/dL (8.5-10.1); CREATININE 0.8 mg/dL (0.6-1.0); POTASSIUM 3.4 mmol/L (3.5-5.1)
[2021-08-03 10:59] LABS: ALBUMIN 3.9 g/dL (3.4-5.0); TOTAL BILIRUBIN 0.4 mg/dL (0.2-1.0); TOTAL PROTEIN 6.8 g/dL (6.4-8.2)
[2021-08-03 12:24] LABS: URINE BILIRUBIN NEGATIVE (Negative); URINE BLOOD NEGATIVE (Negative); URINE CLARITY CLOUDY; URINE COLOR YELLOW; URINE GLUCOSE-RANDOM* NEGATIVE (Negative); URINE KETONES NEGATIVE (Negative); URINE PROTEIN (DIPSTICK) NEGATIVE (Negative); URINE SPECIFIC GRAVITY 1.015 (1.005-1.035)
[2021-08-03 12:56] LABS: URINE LEUKOCYTES-REFLEX 3+ (Negative); URINE NITRITE-REFLEX POSITIVE (Negative)
[2021-08-03 12:58] LABS: SQUAMOUS >10 Many /LPF (0-3)
[2021-08-03 12:59] LABS: BACTERIA-REFLEX >30 Many /HPF (None Seen); CASTS None Seen /LPF (None Seen); CRYSTALS None Seen /LPF (None Seen); URINE RBC None Seen /HPF (NONE SEEN)
[2021-08-03] MEDS ORDERED: PREDNISONE 20 M20 MG PO (13:47)
[2021-08-03] MEDS ORDERED: CEPHALEXIN500 MG PO (13:47)
[2021-08-03 14:11] VITALS: BP 135/83
== END 2021-08-03 14:11 | disposition home or self-care (01) ==
LOC: ER 09:17
PROVIDERS: Emergency Medicine
DX: N39.0 Urinary tract infection, site not specified (principal); E11.9 Type 2 diabetes mellitus without complications; I10 Essential (primary) hypertension; J45.909 Unspecified asthma, uncomplicated; G43.909 Migraine, unspecified, not intractable, without status migrainosus; Z79.82 Long term (current) use of aspirin; Z90.710 Acquired absence of both cervix and uterus; Z79.899 Other long term (current) drug therapy

== ENCOUNTER → 2021-08-12 | Outpatient (CLI) | payer BC, OTHER ==
[~2021-08-12] VITALS: Ht 170.2 cm; Wt 68.7 kg
[~2021-08-12] MED LIST changes: +CEPHALEXIN500 MG PO; +HYDROQUINONE TOP
[2021-08-12 12:42] VITALS: BP 134/72
--- NOTE | 2021-08-12 12:50 | NUR ---
Pain Clinic Assessment: 1. 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 Height: 5 ft. 7 in. 170.2 cm. Weight: 151.4 lb. oz. 68.675 kg. Patient's BMI: 23.7 3. Vital Signs: BP: 134/72 Pulse: 92 Resp: 16 Temp: 02 Sat: 100 ECG Mon: 4. Pain Intensity: 10 5. Fall Risk: Dizziness: N Needs help standing or walking: N Fallen in the last 3 months: N Fall risk comments: 6. Patient on Blood Thinner: None 7. History of Hypertension: Y 8. Opioid Therapy greater than 6 weeks: N Opiate Contract Signed: 9. Risk Assessment Tool Provided: 0-low 10. Functional Assessment Tool: 63/70 11. Recreational Drug Use: Never Drug Type: Tobacco Use: Never Smoker Tobacco Type: Amount or Packs/day: How Many Years: Alcohol Use: Yes Frequency: Special Occasions Quant: 2
--- NOTE | 2021-08-13 08:05 | HPC ---
[facility] [place] [address] PAIN MANAGEMENT CONSULTATION Name: YARA CALI Room #: REG [facility]..#: [id number] Admission: 08/12/21 Attend Phys: Oswald Tyson DO Discharge: Date of : 48 Report #: [id number] THIS REPORT FOR: cc: Oswald Goyal,Oswald Poe DO ~ cc: Oswald Goyal DO DATE OF SERVICE: 08/12/2021 CHIEF COMPLAINT: Low back pain, lower extremity pain with paresthesias. HISTORY OF PRESENT ILLNESS: As you know, the patient is a very pleasant 71-year-old female returning in followup visit with recurrence of lumbar radicular symptoms. She is placing her current pain score 10/10. She states the pain is exacerbated with weather, bending, standing and sitting, improves with medications, heat and cold compresses, Tylenol, recliner positioning and previous epidural injection. She reports 70% improvement in overall pain with the epidural injection provided at her last visit, lasting for almost 2 months. Unfortunately, her symptoms have reoccurred. No inciting injury or trauma. She returns today in followup visit requesting next in the series of lumbar epidural injections. ALLERGIES: No known drug allergies. CURRENT MEDICATIONS: Clonidine, aspirin, Trulicity, gabapentin, Janumet, montelukast sodium, Symbicort, potassium, diltiazem, DuoNeb, Fioricet, Estrace and hydrochlorothiazide. SOCIAL HISTORY: The patient denies tobacco, denies IV or illicit drug use, denies any chronic alcohol use. She is unaccompanied at today's visit. IMAGING: No new imaging available. PHYSICAL EXAMINATION: VITAL SIGNS: Blood pressure 134/72, pulse 92, respiratory rate 16 and unlabored. The patient 100% on room air. Height 5 feet 7 inches tall, weight 151.4 pounds, BMI calculated 23.7. GENERAL: Well-developed, well-nourished, well-hydrated 71-year-old female appearing stated age, placing current pain score at 10/10. HEENT: Normocephalic, atraumatic. Pupils are round and responsive. She is deemed a good historian. She is wearing a mask in compliance with COVID-19 regulations. EXTREMITIES: Show no clubbing, no cyanosis, no edema. MUSCULOSKELETAL: Lower extremity strength remained symmetrical again today 5/5. Seated straight leg raising negative. Supine straight leg raising is positive on the right, approximately 60-70 degree angle. Ankle clonus negative. [address] [address] PAIN MANAGEMENT CONSULTATION Name: YARA CALI Room #: REG [facility].#: [id number] Admission: 08/12/21 Attend Phys: Oswald Tyson DO Discharge: Date of : 48 Report #: [id number] Babinski is negative. Gait is mildly antalgic favoring the right lower extremity. ASSESSMENT: 1. Symptomatic lumbar radiculopathy. 2. Displacement of lumbar intervertebral disk with radiculopathy. 3. Lumbosacral spondylosis with radiculopathy. 4. Lumbar degeneration. 5. Chronic intractable pain. PLAN: 1. The patient returns today in followup visit requesting to undergo lumbar epidural injection under fluoroscopic guidance. The patient reports up to 70% improvement in overall pain lasting for 2 months with the previous epidural injection. She returns today requesting next in the series. She has been advised risks and benefits of the procedure, states understood and wished to proceed. 2. No medication changes made at today's visit. The patient will continue current medical therapy as prior prescribed. 3. We plan to see the patient back for a followup visit on an as-needed basis for the next in a series of epidural injections. We are hopeful the patient will see once again good and prolonged benefit with the epidural injections provided today. PROCEDURE NOTE DESCRIPTION OF PROCEDURE: L5-S1 right paramedian epidural steroid injection under fluoroscopic guidance. After obtaining written consent, the patient was taken back to fluoroscopy suite, placed in prone position with pillow under abdomen to decrease lumbar lordosis. Skin overlying lumbosacral area was then prepped and draped in aseptic fashion. The L4-L5 vertebral interspace was identified by AP fluoroscopy. Skin and subcutaneous tissue overlying target site injection anesthetized with 3 mL 1% lidocaine. A 20-gauge, 3-1/2-inch Tuohy needle was advanced under fluoroscopic guidance towards the epidural space using a right paramedian approach. Epidural space identified using loss of resistance to air technique. After negative aspiration for heme or cerebrospinal fluid, 1 mL of Omnipaque injected. The lumbar epidurogram was confirmed using both AP and lateral fluoroscopy. After negative aspiration for heme or cerebrospinal fluid, 5 mL of a solution containing 2 mL, 40 mg per mL, 80 mg total triamcinolone along with 3 mL of lidocaine 1% injected slowly. Needle retracted fdc, flushed with 1 mL of 1% lidocaine, then removed. Sterile bandage placed over injection site. There were no new motor deficits present in the lower extremities following the procedure. [address] [address] PAIN MANAGEMENT CONSULTATION Name: YARA CALI Room #: REG CLLiliana ChildersAmador#: [id number] Admission: 08/12/21 Attend Phys: Oswald Tyson DO Discharge: Date of : 48 Report #: [id number] The patient tolerated the procedure well, carefully escorted to recovery room in stable condition. No apparent complications. After meeting our discharge criteria, the patient was then discharged home. <ELECTRONICALLY SIGNED> By: Oswald Tyson DO 08/13/21 0805 1410 1645 Oswald Tyson DO /nt
== END | disposition home or self-care (01) ==
LOC: PAIN 10:57
PROVIDERS: ATTEND Anesthesiology Pain Medicine
DX: M51.16 Intervertebral disc disorders with radiculopathy, lumbar region (principal); M47.27 Other spondylosis with radiculopathy, lumbosacral region; G89.29 Other chronic pain; J45.909 Unspecified asthma, uncomplicated; Z98.890 Other specified postprocedural states; Z79.899 Other long term (current) drug therapy; Z86.73 Personal history of transient ischemic attack (TIA), and cerebral infarction without residual deficits